=== PATIENT | male | born 1950 | race Caucasian/White ===

== ENCOUNTER 2016-04-07 14:15 | Observation (INO) | payer OTHER ==
--- NOTE | 2016-04-07 15:29 | EDPHY ---
H & P Time Seen by Provider: 04/07/16 15:29 HPI/ROS: CHIEF COMPLAINT: Short of breath with exertion HISTORY OF PRESENT ILLNESS: Over the last 10 days this 65-year-old man is notice it becomes increasingly short of breath with exertion. Normally he is able to go for a run and ride his bike for an hour or two, and has been exercising vigorously for many decades. Over the last 10 days he noticed he gets more short of breath with his runs starting 20 seconds into his exercise. He is able to push on through and complete his exercise but notes he is about 2 or 3 minutes per mile slower than typical. He states he has no energy. Not associated with cough or fever or chest pain. Not associated with leg swelling. He is just feeling much more tired than usual as well. REVIEW OF SYSTEMS: Eye: no change in vision ENT: no sore throat Cardiac: no chest pain or syncope Pulmonary: HPI Abdomen: no vomiting, diarrhea, abdominal pain, does have dark stools for the last week and a half. Musculoskeletal: no back pain Skin: no rash Neuro: no headache Constitutional: no fever : no urinary symptoms A comprehensive 10 point review of systems is otherwise negative aside from elements mentioned in the history of present illness. PAST MEDICAL HISTORY: Negative except for ear surgery Social history: Mother had an CT in her 70s, nonsmoker, a few ibuprofen. Ashley Bobby and Ramin Chi patient. General Appearance: Alert and conversant, cooperative. Eyes: No scleral icterus. ENT, Mouth: Normal mucous membranes. Respiratory: Normal respiratory effort, breath sounds equal, lungs are clear to auscultation. Cardiovascular: Regular rate and rhythm. 1/6 systolic murmur. Gastrointestinal: Abdomen is soft and non tender. Rectal exam shows dark stool sent for Hemoccult. Neurological: Alert and oriented x3. Normally conversant. Face symmetric, normal movement and sensation in all extremities. Skin: Warm and dry, no rashes. Musculoskeletal: No peripheral edema and no joint swelling. Psychiatric: Not agitated. Emergency Department course/MDM: Plan for D-dimer troponin EKG chest x-ray and fecal occult blood. Results discussed with the patient. Plan for admission for cardiac risk stratification and further evaluation in a patient with new onset exertional dyspnea. At this point I think acute gastrointestinal bleed or pulmonary embolism or CHF are unlikely. Smoking Status: Never smoked Constitutional: Initial Vital Signs Temperature (C) 36.7 C 04/07/16 14:22 Heart Rate 66 04/07/16 14:22 Respiratory Rate 17 04/07/16 14:22 Blood Pressure 112/73 04/07/16 14:22 O2 Sat (%) 99 04/07/16 14:22 O2 Delivery Mode Room Air Allergies/Adverse Reactions: No Known Allergies Allergy (Unverified 04/07/16 14:21) Home Medications: Medication Instructions Recorded NK [No Known Home Meds] 04/07/16 Medical Decision Making - Diagnostics EKG Interpretation: 12-lead EKG interpreted by me; official reading is in trace master. My interpretation is sinus rhythm with late anterior RS progression. Imaging: Chest x-ray viewed independently by myself is negative for acute process. Differential Diagnosis: Differential diagnosis considered for shortness of breath including but not limited to pulmonary infectious process, COPD, asthma, pulmonary embolus and congestive heart failure. Consult/Admit Bed Type: Dr. Fran Juan [id number] - Data Points Laboratory Results: Laboratory Results 04/07/16 15:46 04/07/16 15:46 04/07/16 04/07/16 15:46 15:44 WBC 6.37 10^3/uL (3.80-9.50) RBC 4.69 10^6/uL (4.40-6.38) Hgb 14.6 g/dL (13.7-17.5) Hct 42.6 % (40.0-51.0) MCV 90.8 fL (81.5-99.8) MCH 31.1 pg (27.9-34.1) MCHC 34.3 g/dL (32.4-36.7) RDW 12.1 % (11.5-15.2) Plt Count 229 10^3/uL (150-400) MPV 10.7 fL (8.7-11.7) Neut % (Auto) 61.2 % (39.3-74.2) Lymph % (Auto) 26.8 % (15.0-45.0) [place] % (Auto) 8.0 % (4.5-13.0) Eos % (Auto) 3.1 % (0.6-7.6) Baso % (Auto) 0.6 % (0.3-1.7) Nucleat RBC Rel Count 0.0 % (0.0-0.2) Absolute Neuts (auto) 3.89 10^3/uL (1.70-6.50) Absolute Lymphs (auto) 1.71 10^3/uL (1.00-3.00) Absolute Monos (auto) 0.51 10^3/uL (0.30-0.80) Absolute Eos (auto) 0.20 10^3/uL (0.03-0.40) Absolute Basos (auto) 0.04 10^3/uL (0.02-0.10) Absolute Nucleated RBC 0.00 10^3/uL (0-0.01) Immature Gran % 0.3 % (0.0-1.1) Immature Gran # 0.02 10^3/uL (0.00-0.10) D-Dimer < 0.27 ug/mLFEU (0.00-0.50) Sodium 142 mEq/L (134-144) Potassium 4.1 mEq/L (3.5-5.2) Chloride 105 mEq/L (97-110) Carbon Dioxide 26 mEq/l (22-31) Anion Gap 11 mEq/L (8-16) BUN 27 H mg/dL (7-23) Creatinine 0.8 mg/dL (0.7-1.3) Estimated GFR > 60 Glucose 79 mg/dL (70-100) Calcium 9.2 mg/dL (8.5-10.4) Troponin I 0.023 ng/mL (0-0.034) Stool Occult Bld Scrn NEGATIVE (NEGATIVE) Departure - Departure Disposition: [facility] Inpatient Acute Clinical Impression: Dyspnea on exertion Condition: Good
--- NOTE | 2016-04-07 15:47 | CPEKG ---
Heart Rate: 61 RR Interval: 984 P-R Interval: 184 QRSD Interval: 84 QT Interval: 468 QTC Interval: 472 P Modena: -21 QRS Modena: -8 T Wave Modena: 28 EKG Severity - BORDERLINE ECG - EKG Impression: SINUS RHYTHM EKG Impression: BORDERLINE R WAVE PROGRESSION, ANTERIOR LEADS Electronically Signed By: Ammon Kimball 07-Apr-2016 16:01:58
[2016-04-07 16:08] LABS: % IMMATURE GRANULYOCYTES 0.3 % (0.0-1.1); ABSOLUTE IMMATURE GRANULOCYTES 0.02 10^3/uL (0.00-0.10); ADD DIFF? NO; ADD MORPH? NO; ADD SCAN? NO; ATYPICAL LYMPHOCYTE FLAG 0 (0-99); FRAGMENT RBC FLAG 0 (0-99); HEMATOCRIT 42.6 % (40.0-51.0); HEMOGLOBIN 14.6 g/dL (13.7-17.5); LEFT SHIFT FLG 0 (0-99); LIPEMIA HEMOLYSIS FLAG 90 (0-99); MEAN CELL HEMOGLOBIN 31.1 pg (27.9-34.1); MEAN CELL HEMOGLOBIN CONCENTR. 34.3 g/dL (32.4-36.7); MEAN CELL VOLUME 90.8 fL (81.5-99.8); MEAN PLATELET VOLUME 10.7 fL (8.7-11.7); PLATELET CLUMPS FLAG 10 (0-99); PLATELET COUNT 229 10^3/uL (150-400); RED BLOOD CELL COUNT 4.69 10^6/uL (4.40-6.38); RED CELL DISTRIBUTION WIDTH 12.1 % (11.5-15.2)
[2016-04-07 16:21] LABS: ANION GAP 11 mEq/L (8-16); CALCIUM 9.2 mg/dL (8.5-10.4); CARBON DIOXIDE 26 mEq/l (22-31); CHLORIDE 105 mEq/L (97-110); CREATININE 0.8 mg/dL (0.7-1.3); GLOMERULAR FILTRATION RATE > 60; GLUCOSE 79 mg/dL (70-100); POTASSIUM 4.1 mEq/L (3.5-5.2); SODIUM 142 mEq/L (134-144)
--- NOTE | 2016-04-07 16:28 | DX ---
Chest, PA and Lateral History: Dyspnea COMPARISON: October 09, 2008 Findings: There is chronic or recurrent bronchial wall thickening associated with moderately prominen t lung volumes. There is no focal infiltrate or consolidation. Heart size is normal. There is no darnell opathy or mass lesion. There is no pleural effusion or pneumothorax. There is chronic degenerative sp urring in the mid and lower thoracic spine. EKG leads overlie the chest. Impression: Chronic or recurrent airways disease/COPD. No pneumonia or CHF.
[2016-04-07 16:32] LABS: TROPONIN I 0.023 ng/mL (0-0.034)
[2016-04-07] MEDS ORDERED: ACETAMINOPHEN 325 MG TAB PO PRN (18:05)
[2016-04-07] MEDS ORDERED: ONDANSETRON DISINTEGRATING 4 MG TAB PO PRN (18:05)
[2016-04-07] MEDS ORDERED: NITROGLYCERIN 0.4 MG BTL SL PRN (18:05)
--- NOTE | 2016-04-07 22:00 | PDEACUHP ---
History and Physical - Chief Complaint sob with exertion - History of Present Illness 65 yo M with no significant PMH presenting with about 10 days of worsening shortness of breath with exertion. Patient notes that he is very active at baseline, he has competed in [employer] in the past and runs and exercises regularly, greater than 7-9 hours per week. Recently he has begun to experience shortness of breath and fatigue with his usual exertion, as well as chest tightness. This has not occurred in the past. He has not had fevers or chills or cough. He has no chronic lung issues. He has had no swelling or pain in his legs. He has never been told he has a heart murmur in the past. History Information - Allergies/Home Medication List Allergies/Adverse Reactions: No Known Allergies Allergy (Unverified 04/07/16 14:21) Home Medications: NK [No Known Home Meds] 04/07/16 [Last Taken Unknown] I have personally reviewed and updated: family history, medical history, social history, surgical history - Past Medical History no pertinent PMH - Surgical History Reports: no pertinent surgical hx - Family History Positive for: myocardial infarction (mother with NV at age 65) - Social History Smoking Status: Never smoked Alcohol Use: None Drug Use: None Review of Systems ROS: 10pt was reviewed & negative except for what was stated in HPI & below Physical Exam Temp Pulse Resp BP Pulse Ox 36.4 C 69 16 112/73 96 04/07/16 21:49 04/07/16 21:49 04/07/16 21:49 04/07/16 21:49 04/07/16 21:49 Constitutional: no apparent distress, appears nourished Eyes: PERRL, anicteric sclera Ears, Nose, Mouth, Throat: moist mucous membranes, hearing normal Cardiovascular: regular rate and rhythym, no murmur, rub, or gallop, systolic murmur Respiratory: no respiratory distress, no rales or rhonchi, clear to auscultation Gastrointestinal: normoactive bowel sounds, soft, non-tender abdomen, no palpable masses Skin: warm, normal color, mottled Musculoskeletal: full muscle strength, no muscle tenderness Neurologic: AAOx3, sensation intact bilaterally, weakness Psychiatric: interacting appropriately, not anxious, not encephalopathic Lab Data & Imaging Review 04/07/16 15:46 04/07/16 15:46 WBC 6.37 10^3/uL (3.80-9.50) 04/07/16 15:46 RBC 4.69 10^6/uL (4.40-6.38) 04/07/16 15:46 Hgb 14.6 g/dL (13.7-17.5) 04/07/16 15:46 Hct 42.6 % (40.0-51.0) 04/07/16 15:46 MCV 90.8 fL (81.5-99.8) 04/07/16 15:46 MCH 31.1 pg (27.9-34.1) 04/07/16 15:46 MCHC 34.3 g/dL (32.4-36.7) 04/07/16 15:46 RDW 12.1 % (11.5-15.2) 04/07/16 15:46 Plt Count 229 10^3/uL (150-400) 04/07/16 15:46 MPV 10.7 fL (8.7-11.7) 04/07/16 15:46 Neut % (Auto) 61.2 % (39.3-74.2) 04/07/16 15:46 Lymph % (Auto) 26.8 % (15.0-45.0) 04/07/16 15:46 [place] % (Auto) 8.0 % (4.5-13.0) 04/07/16 15:46 Eos % (Auto) 3.1 % (0.6-7.6) 04/07/16 15:46 Baso % (Auto) 0.6 % (0.3-1.7) 04/07/16 15:46 Nucleat RBC Rel Count 0.0 % (0.0-0.2) 04/07/16 15:46 Absolute Neuts (auto) 3.89 10^3/uL (1.70-6.50) 04/07/16 15:46 Absolute Lymphs (auto) 1.71 10^3/uL (1.00-3.00) 04/07/16 15:46 Absolute Monos (auto) 0.51 10^3/uL (0.30-0.80) 04/07/16 15:46 Absolute Eos (auto) 0.20 10^3/uL (0.03-0.40) 04/07/16 15:46 Absolute Basos (auto) 0.04 10^3/uL (0.02-0.10) 04/07/16 15:46 Absolute Nucleated RBC 0.00 10^3/uL (0-0.01) 04/07/16 15:46 Immature Gran % 0.3 % (0.0-1.1) 04/07/16 15:46 Immature Gran # 0.02 10^3/uL (0.00-0.10) 04/07/16 15:46 D-Dimer < 0.27 ug/mLFEU (0.00-0.50) 04/07/16 15:46 Sodium 142 mEq/L (134-144) 04/07/16 15:46 Potassium 4.1 mEq/L (3.5-5.2) 04/07/16 15:46 Chloride 105 mEq/L (97-110) 04/07/16 15:46 Carbon Dioxide 26 mEq/l (22-31) 04/07/16 15:46 Anion Gap 11 mEq/L (8-16) 04/07/16 15:46 BUN 27 mg/dL (7-23) H 04/07/16 15:46 Creatinine 0.8 mg/dL (0.7-1.3) 04/07/16 15:46 Estimated GFR > 60 04/07/16 15:46 Glucose 79 mg/dL (70-100) 04/07/16 15:46 Calcium 9.2 mg/dL (8.5-10.4) 04/07/16 15:46 Troponin I 0.023 ng/mL (0-0.034) 04/07/16 15:46 Stool Occult Bld Scrn NEGATIVE (NEGATIVE) 04/07/16 15:44 Visualized and Interpreted Chest x-ray results: Yes Chest X-Ray results: no infiltrate Visualized and Interpreted EKG results: Yes EKG Interpretation: Positive for: normal sinsus rhythm EKG additional interpertation: poor r wave progression Assessment & Plan Assessment: 65 yo M with no PMH presenting with shortness of breath with exertion and chest pressure x 10 days with new heart murmur # sob/cp with exertion: new over the last 10 days, trop negative and non diagnostic ecg. Plan to monitor on telemetry overnight, serial trops, stress test in am # heart murmur: ? , per patient has never been told he has a murmur in the past. Given his sxs with exertion concerning that he has new or worsening valvular heart disease, has not had echo in the past. Echo ordered and pending # elevated BUN: creatinine wnl, will monitor # dispo: Observation status # patient new to my care. Old records reviewed and summarized as above. Care plan reviewed with ER doctor, further hx obtained from patients present at bedside.
[2016-04-08 08:41] VITALS: BP 106/74; PULSE 58; RESP 13; TEMP 97.7; O2SAT 97
[2016-04-08] MEDS ORDERED: ASPIRIN 325 MG TAB PO SCH (09:00)
--- NOTE | 2016-04-08 09:09 | ECHO ---
[id number] + + [address] : : [place] [address] : : [phone] + + Adult Echocardiographic Report + ---+ :Name: RONN THOMPSON KStudy Date: 04/08/2016 08:16 AM : : Hospital Admission Number: [id number] Location: 143: :: 1950 Gender: Male Height: 74 in : :Age: 65 yrs Race: WH Weight: 180 lb : :Reason For Study: New murmur/SOB with exertion : : BSA: 2.1 meters2 : + ---+ MMode/2D Measurements & Calculations IVSd: 0.89 cm LVIDd: 6.2 cm FS: 38.2 % MV Diam: 4.1 cm LVPWd: 0.76 cm LVIDs: 3.8 cm EDV(Teich): 196.1 ml ESV(Teich): 63.9 ml EF(Teich): 67.4 % Ao root diam: LVOT diam: LVLd ap4: 9.5 cm SV(MOD-sp4): 4.3 cm 2.9 cm EDV(MOD-sp4): 123.0 ml LA dimension: LVOT area: 176.0 ml 5.2 cm 6.4 cm2 LVLs ap4: 8.2 cm ESV(MOD-sp4): 53.0 ml EF(MOD-sp4): 69.9 % Normal Measurement Values: + + :LVIDd (3.5-5.7cm) IVSd (0.6-1.1cm) LVPWd (0.6-1.1cm) Aortic Root (2.0-3.7cm)Left Atrium (1.5-4.0cm): :LV Vol(d) (76-115ml) LV Vol(s) (29-48ml) Ejec Fraction (50-65%)PV Quirino (0.6- 1.2m/s) TV Quirino (0.4-1.0m/s) : :MV E Quirino (0.8-1.0m/s)MV A Quirino (0.3-1.0m/s)LVOT Quirino (0.7-1.2m/s) Asc Ao Quirino ( 0.9-1.8m/s) : + + Doppler Measurements & Calculations MV E max quirino: MV V2 max: Ao V2 max: LV V1 max: 129.0 cm/sec 134.0 cm/sec 101.0 cm/sec 76.7 cm/sec MV A max quirino: MV max P.2 mmHg Ao max PG: LV V1 max P.2 cm/sec MV V2 mean: 4.1 mmHg 2.4 mmHg MV E/A: 2.3 72.4 cm/sec Ao mean PG: LV V1 mean PG: MV mean P.0 mmHg2.0 mmHg 1.0 mmHg MV V2 VTI: 42.5 cm Ao V2 mean: LV V1 mean: MV area (1 diam): 60.6 cm/sec 46.5 cm/sec 13.2 cm2 Ao V2 VTI: 14.4 cm LV V1 VTI: VERONICA(I,D): 5.8 cm2 13.1 cm MVA(VTI): 2.0 cm2 MV Flow area(1diam):VERONICA(V,D): 4.8 cm2 13.2 cm2 MR max quirino: MR(RF 1 diam): SV(MV 1 diam): TR max quirino: 537.0 cm/sec 24.7 % 561.1 ml 257.0 cm/sec MR max PG: SI(MV 1 diam): TR max P.3 mmHg 270.0 ml/m2 26.4 mmHg SV(LVOT): 83.6 ml RAP systole: 5.0 mmHg RVSP(TR): 31.4 mmHg RF(MV,Ao)(1 diam): 0.63 RF(MV,LVOT) (1diam): 0.85 Left Ventricle The left ventricle is mildly dilated. There is normal left ventricular wall thickness. Left ventricular systolic function is normal. Ejection Fraction = 65-70%. No regional wall motion abnormalities noted. Right Ventricle The right ventricle is normal in size and function. Atria The left atrium is severely dilated. Right atrial size is normal. Mitral Valve Prolapse of the posterior mitral leaflet(s). Possible flail posterior leaflet. There is severe mitral regurgitation. The mitral regurgitant jet is anteriorly directed, which is consistent with posterior leaflet pathology. Tricuspid Valve Normal tricuspid valve. There is mild tricuspid regurgitation. Right ventricular systolic pressure is normal. Aortic Valve The aortic valve is trileaflet. The aortic valve opens well. There is no aortic stenosis. Trace to mild aortic regurgitation. Pulmonic Valve The pulmonic valve is normal in structure and function. Trace pulmonic valvular regurgitation. Great Vessels The aortic root is normal size. Pericardium/Pleural There is no pericardial effusion. Conclusion A complete two-dimensional transthoracic echocardiogram was performed (2D, M-mode, Doppler and color flow Doppler). Left ventricular systolic function is normal. The left ventricle is mildly dilated. Ejection Fraction = 65-70%. The left atrium is severely dilated. Prolapse of the posterior mitral leaflet(s). Possible flail posterior leaflet There is severe mitral regurgitation. The mitral regurgitant jet is anteriorly directed, which is consistent with posterior leaflet pathology. There is mild tricuspid regurgitation. Right ventricular systolic pressure is normal. Trace to mild aortic regurgitation. Trace pulmonic valvular regurgitation. Recommend cardiology consult and DEYANIRA. No prior echo Final Reading Physician: Dr Elsa Andrade electronically signed on 04/08/2016 09:07 AM Ordering Physician: Fran Juan Performed By: Ana Payan, [facility]
--- NOTE | 2016-04-08 12:53 | CPR ---
[f rep st] NONINVASIVE CARDIAC PROCEDURE REPORT PROCEDURE: Exercise treadmill myocardial perfusion imaging study. INDICATION FOR STRESS TEST: Ongoing shortness of breath. PRE: After obtaining informed consent, patient was placed onto electrocardiogram, initial EKG shows sinus rhythm, normal axis, no significant ST or T-wave abnormalities. Patient denies of any chest pain or shortness of breath, or symptoms suggesting of ischemia. Initial blood pressure of 104/64, initial saturation 96% on room air. STRESS: Patient was placed on exercise treadmill following standard Carl protocol with the following findings: 1. Patient exercised for 9 minutes and 45 seconds. 2. 10.7 METS. 3. Obtained a heart rate of 141 BPM, which was 90% of MPHR. 4. At peak exercise, patient noted to have submillimeter upsloping ST depression in lateral leads. 5. Patient had no chest pain or symptoms suggesting of ischemia. 6. Patient was noted to have frequent PACs with exercise. At 1 point, noted to have bigeminal PACs. Patient was asymptomatic of them. Patient was noted also to have rare premature ventricular contraction in stress and recovery. 7. Patient's SpO2 remained greater than 90% throughout testing. 8. BP variation during testing at rest 104/64, at peak stress 174/74. 9. Test stopped due to maximum effort. 10. Palmer treadmill score of 9, placing patient at low cardiovascular risk. RECOVERY: Patient recovered 5 minutes, noted to continue to have occasional premature atrial contraction, rare premature ventricular contraction, he remained asymptomatic of chest pain or shortness of breath, within 5 minutes heart rate returned back to baseline, blood pressure also returned back to baseline within 5 minutes. He again remained asymptomatic. Vital signs stable , he was taken down to Nuclear Medicine for poststress MPI imaging. IMPRESSION: A 65-year-old male, reporting increased shortness of breath with exercise over the last 2 weeks, exercise treadmill testing done which was negative for cardiac ischemia, Palmer treadmill score of 9 placing him at low cardiovascular risk, normal BP variations, noted to have frequent PACs with exercise, at 1 point bigeminal PACs, patient was asymptomatic, rare PVC noted in stress and recovery. The results were gone over with Dr. Hector,and called to Dr. Jo of the hospitalist service. /[id number]/MODL MTDD
--- NOTE | 2016-04-08 15:03 | PDDCSUM ---
Discharge Summary Discharge Summary: DISCHARGE SUMMARY NOTE DISCHARGE DIAGNOSES: # exertional angina pectoralis and exertional dyspnea # severe mitral regurgitation, with flail leaflet CONSULTANTS: Dr Elsa Andrade PROCEDURES: Echocardiogram Exercise stress test with Myocardial Perfusion Imaging HOSPITAL COURSE SUMMARY: This patient who is very fit and exercises at a high level regularly comes into the hospital with exertional chest pain and exertional dyspnea, unable to perform at his usual level in his extensive exercise regimens. He has no previous heart or lung disease. He ruled out for myocardial and did not have signs of heart failure or arrhythmia on his evaluation here. He is not a smoker. There was no murmur on initial examination. However echocardiogram showed severe mitral regurgitation with a flail leaflet and eccentric jet. He did well on a treadmill exercise stress test. The patient was seen by Dr. Elsa Andrade. At this point is recommended that he will likely need valve replacement surgery and he has been seen by Dr. Dimitri Braun. He is stable for discharge from hospital at this point but will return in 2 days for outpatient transesophageal echocardiogram and angiography. Depending on the details final results it is anticipated that he will be scheduled for surgery sometime over the next couple of weeks. as his blood pressures are fairly low at this time he is not started on any afterload reduction or beta-blockers. MEDICATION CHANGES: None FOLLOW-UP PLAN: He will be in touch with Dr. Browning office and the plan is for him to have outpatient DEYANIRA and angiography in 2 days. He is instructed to return promptly if he develops significant shortness of breath or angina or other problems. Greater than 35 minutes bedside and care coordination time todayns of heart failure or a root
--- NOTE | 2016-04-08 15:08 | NM ---
Nuclear Medicine Myocardial Perfusion Stress and Rest Imaging History: Chest pain. Comparison: Chest x-ray yesterday Technique: Rest imaging performed with intravenous administration of 10.9 mCi of technetium 99m labe led sestamibi on today. Stress imaging performed with the intravenous administration of 29.9 mCi of technetium 99m labeled sestamibi on today. Patient achieved 10.7 METS. Images are reviewed on the in dependent nuclear medicine work station, computer analysis is performed. Findings: The left ventricular ejection fraction is 51%. Enlarged left ventricular cavity. Stress and rest imaging demonstrates fixed defect involving the inferior lateral wall of the left ventricul ar myocardium consistent with old infarct. No reversible myocardial ischemia.. No focal wall motion a bnormalities. Impression: 1. Borderline normal left ventricular ejection fraction of 51%. 2. No focal wall motion abnormalities. 3. Enlarged left ventricular cavity. 4. 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 5. No evidence of reversible myocardial ischemia.
--- NOTE | 2016-04-08 15:09 | GCON ---
[f rep st] CONSULTATION CARDIOLOGY CONSULT DATE OF CONSULTATION: 04/08/2016 CHIEF COMPLAINT: Mitral valve regurgitation. HISTORY OF PRESENT ILLNESS: We were asked by Dr. Jo to visit with the patient. The patient is a 65-year-old male with no past medical history. He has never been told he had a murmur. He has no h istory of childhood illness. He is very active and has completed 10 [employer] triathlons. 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 Over the past 10-14 days, he has had significant decline in his exercise tolerance. He states that debbie guan starts to run at a leisurely pace and has to slow down or stop after just 20 seconds or so because of dyspnea. Once he stops, he does not feel dyspneic. He has not had anginal quality chest pain. Debbie guan denies palpitations, presyncope, or syncope. He only notes lower extremity edema on long airplane flights. He was admitted through the ER for these symptoms. Serial troponins have been negative. His echocar diogram was performed this morning and reviewed by me and shows severe mitral regurgitation in the se tting of severe posterior leaflet prolapse and possible posterior leaflet flail. His left atrium is severely dilated. LV is mildly dilated with normal systolic function. Estimated RV systolic pressur e is normal. REVIEW OF SYSTEMS: A full 10-point review of systems was performed. The patient did have 2 days of diarrhea in February but has really had no other infectious issues. A full 10-point review of system s is otherwise negative except that which is detailed above. ALLERGIES: No known drug allergies. PAST SURGICAL HISTORY: Ear surgery. MEDICATIONS: None. SOCIAL HISTORY: The patient is and his is at the bedside. He works in [employer] for [employer]. He does not smoke cigarettes or drink significant amounts of alcohol. FAMILY HISTORY: His mother had vascular disease in her 60s. No history of valvular disease in the f amily to his knowledge. His father of what sounds like a ruptured AAA. PHYSICAL EXAM: VITAL SIGNS: Blood pressure 106/74, heart rate 58, oxygen saturation 97% on room air . He is afebrile. GENERAL: Well-appearing male younger than his stated age. HEENT: Sclerae clear and free of jaundice. Mucous membranes are moist. Normocephalic, atraumatic. CARDIOVASCULAR: JVP is less than 10. Carotids equal and 2+ without bruit. Regular rate and rhythm with a harsh holosys tolic murmur heard loudest at the apex, but heard also at the left lower sternal border. No S3. No S4. LUNGS: Clear to auscultation without wheezes, rhonchi, or rales. ABDOMEN: Soft, nontender, an d nondistended without bruits, masses, or hepatosplenomegaly. EXTREMITIES: Warm and well perfused w ithout cyanosis, clubbing, or edema. NEURO: Alert and oriented x3 without gross focal neurological deficits. LABORATORY DATA: CBC is normal. D-dimer is negative. Sodium 142, potassium 4.1, chloride 105, bica rb 26, BUN 27, creatinine 0.8. Troponin negative x3. Stool occult blood is negative. EKG reviewed by me: Sinus rhythm. Left atrial abnormality. Delayed R-wave progression. Echocardiogram reviewed by me, as detailed above. He did have a stress test without ischemic changes. I believe his nuclear images are pending. Chest x-ray, reviewed by me: No pneumonia or heart failure. Chronic or recurrent airway disease. ASSESSMENT AND PLAN: A 65-year-old male with new onset exertional dyspnea. I think this is almost c ertainly related to his severe mitral regurgitation/posterior leaflet that appears to be related to p osterior leaflet prolapse. Negative troponins and nonischemic EKG make coronary disease a less likel y explanation for his symptoms. He is not in heart failure. He is hemodynamically stable. 1. Mitral valve disease: At this point, given his left atrial enlargement, LV enlargement and sympt oms, he is a candidate for consideration for surgical intervention. He will have a visit with Dr. Fco villagomez. Either today or in the near future as an outpatient, he will require DEYANIRA and coronary angiogram for preoperative planning. I discussed this in detail with the patient and his . 2. Shortness of breath: Again, I think this is related to his progressive mitral valve disease, but he will have an angiogram as well as detailed above. No evidence of pneumonia or heart failure. Thank you for allowing us to participate in this patient's care. We will follow with you. /[id number]/MODL
--- NOTE | 2016-04-09 01:11 | GCON ---
[f rep st] CONSULTATION DATE OF CONSULTATION: 04/08/2016 Patient seen at the request of Dr. Andrade with the patient's permission. IMPRESSION: Severe mitral insufficiency with P2 rupture, myxomatous valve degeneration, marked left atrial enlargement, and some increase in systolic dimensions of the left ventricle. RECOMMENDATIONS: This gentleman should undergo mitral valve repair. Prior to that, he will undergo diagnostic left heart catheterization to rule out coronary disease. If in fact there are no coronary lesions, he could undergo right minithoracotomy, left femoral artery cannulation, mitral valve repai r with a 95% repairability rate in our institution. We discussed various repair techniques. We also discussed tissue and mechanical valves if, in fact, repair was unsuccessful. MEDICAL HISTORY: Essentially totally unremarkable. MEDICATIONS: He is on no medications prior to admission. SOCIAL HISTORY: He has never smoked. He does not drink. He uses no drugs. 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 HISTORY: He had abrupt onset of shortness of breath 10 days ago with any exercise. Prior to that, norm guan was running 2-1/2 hours and riding 4 hours a day without difficulty. He was found to have, on echo , severe mitral regurg with a markedly enlarged left atrium and some increase in systolic dimensions of his left ventricle. PHYSICAL EXAMINATION: GENERAL: This is a well-developed, fit middle-aged gentleman sitting on the b edside in no apparent distress. VITAL SIGNS: Blood pressure is 106/74, pulse 58, respirations 13 an d unlabored. O2 saturation was 97% on room air. HEENT: Normocephalic. PERRLA. EOMI. NECK: With out bruit, adenopathy, or thyromegaly. HEART: Rate is regular. LUNGS: He has an auscultated murmu r of mitral regurgitation. Lungs are clear. ABDOMEN: Soft, nontender. Bowel sounds are active. R ECTAL/GENITAL: Deferred. NEUROLOGIC: Grossly intact. Very appropriate. LABORATORY VALUES: Creatinine was 0.8. Hematocrit 42.6. DATA: Please see echo for details. He is scheduled for DEYANIRA and left heart catheterization in antici pation of surgery. His ejection fraction was 65%. Left ventricle was mildly dilated, per their revi ew. Severe mitral regurgitation with mild aortic regurgitation. /[id number]/MODL
== END 2016-04-08 15:26 | disposition home or self-care (01) ==
LOC: F1N 18:20
PROVIDERS: ADMIT Internal Medicine; ATTEND Internal Medicine
DX: I20.0 Unstable angina (principal); I34.0 Nonrheumatic mitral (valve) insufficiency
CPT/HCPCS: 71020; 78452; 93005; 93017; 93306; A9500; G0378

== ENCOUNTER 2016-04-10 07:58 | Day surgery (SDC) | payer OTHER ==
[2016-04-10] MEDS ORDERED: DIAZEPAM 5 MG TAB PO ONE (08:01)
[2016-04-10] MEDS ORDERED: ASPIRIN EC 325 MG TAB PO ONE (08:01)
[2016-04-10] MEDS ORDERED: FAMOTIDINE 20 MG TAB PO ONE (08:01)
[2016-04-10] MEDS ORDERED: MIDAZOLAM 2 MG/2 ML VIAL IVP ONE (08:01)
[2016-04-10] MEDS ORDERED: BENZOCAINE UNIT DOSE SPRAY HURRICAINE MM ONE (08:01)
[2016-04-10] MEDS ORDERED: NS 1,000 ML IV ONE (08:01)
[2016-04-10] MEDS ORDERED: diphenhydrAMINE 25 MG CAP PO ONE (08:01)
[2016-04-10] MEDS ORDERED: fentaNYL 100 MCG/2 ML INJ IVP ONE (08:01)
--- NOTE | 2016-04-10 08:19 | CPEKG ---
Heart Rate: 58 RR Interval: 1034 P-R Interval: 244 QRSD Interval: 90 QT Interval: 452 QTC Interval: 445 P [place]: 44 QRS [place]: -18 T Wave [place]: 30 EKG Severity - ABNORMAL ECG - EKG Impression: SINUS RHYTHM EKG Impression: FIRST DEGREE AV BLOCK EKG Impression: BORDERLINE LEFT AXIS DEVIATION EKG Impression: CONSIDER ANTEROSEPTAL INFARCT Electronically Signed By: Zeke Whitaker 10-Apr-2016 19:25:49
[2016-04-10 08:34] LABS: % IMMATURE GRANULYOCYTES 0.2 % (0.0-1.1); ABSOLUTE IMMATURE GRANULOCYTES 0.01 10^3/uL (0.00-0.10); ADD DIFF? NO; ADD MORPH? NO; ADD SCAN? NO; ATYPICAL LYMPHOCYTE FLAG 10 (0-99); FRAGMENT RBC FLAG 0 (0-99); HEMATOCRIT 44.2 % (40.0-51.0); HEMOGLOBIN 15.1 g/dL (13.7-17.5); LEFT SHIFT FLG 0 (0-99); LIPEMIA HEMOLYSIS FLAG 90 (0-99); MEAN CELL HEMOGLOBIN 31.5 pg (27.9-34.1); MEAN CELL HEMOGLOBIN CONCENTR. 34.2 g/dL (32.4-36.7); MEAN CELL VOLUME 92.1 fL (81.5-99.8); MEAN PLATELET VOLUME 10.7 fL (8.7-11.7); PLATELET CLUMPS FLAG 0 (0-99); PLATELET COUNT 225 10^3/uL (150-400); RED CELL DISTRIBUTION WIDTH 11.9 % (11.5-15.2)
[2016-04-10 08:44] LABS: INR 1.05 (0.83-1.16); PROTIME(PATIENT) 13.6 SEC (12.0-15.0)
[2016-04-10 09:09] LABS: ANION GAP 12 mEq/L (8-16); CALCIUM 9.2 mg/dL (8.5-10.4); CARBON DIOXIDE 26 mEq/l (22-31); CHLORIDE 105 mEq/L (97-110); CHOLESTEROL 220 mg/dL (140-220); CHOLESTEROL/HDL RATIO 3.49 RATIO (1.00-4.97); CREATININE 0.8 mg/dL (0.7-1.3); GLOMERULAR FILTRATION RATE > 60; GLUCOSE 86 mg/dL (70-100); HIGH DENSITY LIPOPROTEIN 63 mg/dL (40-65); LDL/HDL RATIO 2.11 RATIO (1.00-3.64); LOW DENSITY LIPOPROTEIN 133 mg/dL (80-100); MAGNESIUM 1.9 mg/dL (1.6-2.3); NON-HIGH DENSITY LIPOPROTEIN 157 mg/dL (90-129); POTASSIUM 4.1 mEq/L (3.5-5.2); SODIUM 143 mEq/L (134-144); TRIGLYCERIDE 120 mg/dL (40-150); VERY LOW DENSITY LIPOPROTEINS 24 mg/dL (8-25)
[2016-04-10] MEDS ORDERED: LIDOCAINE 1% 30 ML SDV ONE (10:08)
[2016-04-10] MEDS ORDERED: HEPARIN 10,000 UNIT/10 ML MDV ONE (10:08)
[2016-04-10] MEDS ORDERED: MIDAZOLAM 2 MG/2 ML VIAL ONE (10:08)
[2016-04-10] MEDS ORDERED: VERAPAMIL 5 MG/2 ML VIAL ONE (10:08)
[2016-04-10] MEDS ORDERED: fentaNYL 100 MCG/2 ML INJ ONE (10:08)
[2016-04-10] MEDS ORDERED: IOPAMIDOL (ISOVUE-370) 150 ML BTL IV ONE (10:09)
--- NOTE | 2016-04-10 12:47 | CPIP ---
[f rep st] INVASIVE CARDIAC PROCEDURE DATE OF PROCEDURE: 04/10/2016 PROCEDURES: 1. Left heart catheterization. 2. Coronary angiography. INDICATIONS: Severe mitral regurgitation, preoperative planning. COMPLICATIONS: None. DESCRIPTION OF PROCEDURE: N.p.o. status was confirmed. Informed consent obtained. Time-out perform ed. The patient was brought to the catheterization laboratory and prepped and draped in sterile fash ion. Adequate conscious sedation was achieved with Versed and fentanyl IV. Using 1% lidocaine, a 5- Mozambican introducer sheath was placed in the right radial artery. JR4 and JL 3.5 catheters were used t o image the coronary system. Pigtail catheter was used for LV pressures. At the end of the case, th e patient's right radial arteriotomy site was sealed with a TR band. FINDINGS: 1. Left main is normal and bifurcates into the LAD and left circumflex system. It is difficult to o pacify the LAD given the large size of his coronary vessels. The LAD has 1 principal diagonal. Ther e is no flow-limiting disease. 2. Left circumflex is large and dominant. There are 3 large obtuse marginals. There is no signific ant coronary disease. 3. The right coronary artery is nondominant. There is no significant coronary artery disease. 4. Filling pressures. Aortic pressure was 91/60. LV pressure was 90/8 with an end-diastolic pressu re of 17. There is no aortic stenosis. Ventriculogram was not performed due to significant ventricu lar ectopy with the catheter in the left ventricle. CONCLUSIONS: 1. No significant coronary artery disease in this left dominant system. 2. Slightly elevated LV end-diastolic pressure. 3. Known severe mitral regurgitation based on DEYANIRA done earlier today. 4. Ongoing surgical evaluation for mitral valve repair/replacement. 5. The patient taken to [facility] in stable condition. /[id number]/MODL
--- NOTE | 2016-04-10 13:04 | ECHO ---
[id number] + + [address] : : [facility] [address] : : [phone] + Transesophageal Echocardiographic Report + ---+ :Name: RONN THOMPSON KStudy Date: 04/10/2016 09:13 AM : : Hospital Admission Number: [id number] Location: [facility]: :: 1950 Gender: Male : :Age: 65 yrs Race: WH : :Reason For Study: Eval MV : + ---+ LV The left ventricle is normal in size. Ejection Fraction = 65%. Atria The left atrium is severely dilated. No thrombus is detected in the left atrial appendage. Chiari network (normal variant) is noted. The interatrial septum is intact with no evidence for an atrial septal defect. Injection of contrast documented no interatrial shunt. Mitral Valve Flail or severe prolapse of the mitral posterior leaflet. The primary scallop affected is P2. There is severe mitral regurgitation. The mitral regurgitant jet is anteriorly directed, which is consistent with posterior leaflet pathology. Aortic Valve The aortic valve is normal in structure and function. Trace aortic regurgitation. Pulmonic Valve The pulmonic valve is normal in structure and function. Trace pulmonic valvular regurgitation. Tricuspid Valve The tricuspid valve is normal in structure and function. Pericardium There is no pericardial effusion. Conclusion A 2D transesophageal echocardiogram with color flow Doppler was performed. The left ventricle is normal in size. Ejection Fraction = 65%. The left atrium is severely dilated. No thrombus is detected in the left atrial appendage. The interatrial septum is intact with no evidence for an atrial septal defect. Injection of contrast documented no interatrial shunt. Flail or severe prolapse of the mitral posterior leaflet. There is severe mitral regurgitation. The primary scallop affected is P2 The mitral regurgitant jet is anteriorly directed, which is consistent with posterior leaflet pathology. The aortic valve is normal in structure and function. Trace aortic regurgitation. Trace pulmonic valvular regurgitation. Final Reading Physician: Dr Elsa Andrade electronically signed on 04/10/2016 01:02 PM Ordering Physician: Elsa Andrade Performed By: Dr Elsa Andrade
== END 2016-04-10 17:41 | disposition home or self-care (01) ==
LOC: FCATH 07:58
PROVIDERS: ATTEND Internal Medicine Cardiovascular Disease
PROC: B2111ZZ Fluoroscopy of Multiple Coronary Arteries using Low Osmolar Contrast (ICD-10-PCS; principal; 2016-04-10)
PROC: 4A023N7 Measurement of Cardiac Sampling and Pressure, Left Heart, Percutaneous Approach (ICD-10-PCS; principal; 2016-04-10)
DX: I34.0 Nonrheumatic mitral (valve) insufficiency (principal)
CPT/HCPCS: J1644; J2250; J3010; Q9967

== ENCOUNTER 2016-04-16 05:47 | Inpatient (IN) | payer OTHER ==
[2016-04-16] MEDS ORDERED: MUPIROCIN 2% 22 GM OINT NS ONE (06:00)
[2016-04-16] MEDS ORDERED: PHENYLEPHRINE HCL 50 MG in NS 250 ML IV ONE (06:00)
[2016-04-16] MEDS ORDERED: ceFAZolin 2 GM/DEXTROSE 100 ML IV ONE (06:00)
[2016-04-16] MEDS ORDERED: LIDOCAINE 1% 5 ML SDV ID PRN ×2 (06:00→09:29)
[2016-04-16] MEDS ORDERED: AMINOCAPROIC ACID 5 GM/20 ML VIAL IV ONE (06:00)
[2016-04-16] MEDS ORDERED: niCARdipine/NACL 200 ML IV SCH (06:00)
[2016-04-16] MEDS ORDERED: INSULIN REGULAR HUMAN 100 UNIT in NS 100 ML IV ONE (06:00)
[2016-04-16] MEDS ORDERED: NS 1,000 ML IV ONE (06:00)
[2016-04-16] MEDS ORDERED: NOREPINEPHRINE BITARTRATE 16 MG in NS 250 ML IV ONE (06:00)
[2016-04-16] MEDS ORDERED: SODIUM BICARBONATE 20 MEQ, LIDOCAINE 1% 10 ML in NORMOSOL-R 1,000 ML MISC ONE (06:00)
[2016-04-16] MEDS ORDERED: CHLORHEXIDINE GLUC HIBICLENS 118 ML BTL TP SCH (06:00)
[2016-04-16] MEDS ORDERED: MANNITOL 25% 12.5 GM/50 ML VIAL IV ONE (06:00)
[2016-04-16] MEDS ORDERED: CITRATE DEXTROSE SOLN 500 ML BAG MISC ONE (06:00)
[2016-04-16] MEDS ORDERED: LIDOCAINE 1% 5 ML SDV ONE (06:08)
[2016-04-16] MEDS ORDERED: PROTAMINE SULFATE 50 MG/5 ML VIAL IVP ONE (06:35)
[2016-04-16] MEDS ORDERED: POTASSIUM Cl (KCl) 20 MEQ/50 ML BAG IV ONE (06:36)
[2016-04-16] MEDS ORDERED: AMINOCAPROIC ACID 5 GM/20 ML VIAL ONE ×2 (06:36→06:40)
[2016-04-16] MEDS ORDERED: MILRINONE/DEXTROSE/100 ML BAG IV ONE (06:36)
[2016-04-16] MEDS ORDERED: CALCIUM CHLORIDE 1 GM/10 ML INJ ONE ×2 (06:36→06:40)
[2016-04-16] MEDS ORDERED: DOPamine/DEXTROSE/250 ML BAG IV ONE (06:37)
[2016-04-16] MEDS ORDERED: niCARdipine/NACL/200 ML BAG IV ONE (06:37)
[2016-04-16] MEDS ORDERED: ADENOSINE 6 MG/2 ML VIAL ONE (06:38)
[2016-04-16] MEDS ORDERED: AMIODARONE HCL 150 MG/3 ML VIAL ONE ×2 (06:38→06:41)
[2016-04-16] MEDS ORDERED: HEPARIN 10,000 UNIT/10 ML MDV ONE ×2 (06:38→06:42)
[2016-04-16] MEDS ORDERED: ceFAZolin 1 GM VIAL ONE (06:39)
[2016-04-16] MEDS ORDERED: CITRATE DEXTROSE SOLN 500 ML BAG ONE (06:39)
[2016-04-16] MEDS ORDERED: ALBUMIN 5% 250 ML BOTTLE IV ONE ×2 (06:40→14:57)
[2016-04-16] MEDS ORDERED: methylPREDNISolone SOD SUCC 1 GM/8 ML VIAL ONE (06:41)
[2016-04-16] MEDS ORDERED: LIDOCAINE 2% 100 MG/5 ML SYR IVP ONE ×2 (06:41→07:43)
[2016-04-16] MEDS ORDERED: MAGNESIUM SULFATE 1 GM/2 ML VIAL ONE (06:41)
[2016-04-16] MEDS ORDERED: NA BICARBONATE 50 MEQ/50 ML VIAL ONE (06:42)
[2016-04-16] MEDS ORDERED: BUPIVACAINE/EPI 0.25% 30 ML SDV ONE ×2 (07:36→13:32)
[2016-04-16] MEDS ORDERED: SKIN ADHESIVE (DERMABOND) 1 EACH TP ONE (07:36)
[2016-04-16] MEDS ORDERED: PROPOFOL 200 MG/20 ML VIAL ONE ×2 (07:39→13:53)
[2016-04-16] MEDS ORDERED: fentaNYL 250 MCG/5 ML INJ ONE (07:39)
[2016-04-16] MEDS ORDERED: REMIFENTANIL HCL 1 MG VIAL ONE (07:39)
[2016-04-16] MEDS ORDERED: PROPOFOL/EMULSION 500 MG/50 ML BOTTLE IV ONE (07:39)
[2016-04-16] MEDS ORDERED: MIDAZOLAM 2 MG/2 ML VIAL ONE (07:53)
[2016-04-16] MEDS ORDERED: DEXMEDETOMIDINE HCL 400 MCG in NS 100 ML IV SCH (08:00)
[2016-04-16] MEDS ORDERED: LR 1,000 ML IV ONE (09:29)
[2016-04-16] MEDS ORDERED: morphINE *ANESTHESIA ONLY* 10 MG/ML VIAL ONE (11:00)
[2016-04-16] MEDS ORDERED: MAGNESIUM SULF 2 GM/WATER 50 ML BAG IV ONE (11:07)
[2016-04-16] MEDS ORDERED: ROCURONIUM 50 MG/5 ML VIAL ONE ×2 (11:19→13:12)
[2016-04-16] MEDS ORDERED: fentaNYL 50 MCG PATCH TD ONE (13:30)
[2016-04-16] MEDS ORDERED: INSULIN REGULAR HUMAN 100 UNIT in NS 100 ML IV SCH (13:30)
[2016-04-16] MEDS ORDERED: SODIUM CL NASAL 45 ML BTL EACHNARE PRN (13:30)
[2016-04-16] MEDS ORDERED: MEPERIDINE 25 MG/ML SYR IVP PRN (13:30)
[2016-04-16] MEDS ORDERED: ONDANSETRON 4 MG/2 ML VIAL IVP PRN (13:30)
[2016-04-16] MEDS ORDERED: LACTULOSE 20 GM/30 ML UDCUP PO PRN (13:30)
[2016-04-16] MEDS ORDERED: METOCLOPRAMIDE 10 MG/2 ML VIAL IVP PRN (13:30)
[2016-04-16] MEDS ORDERED: fentaNYL 100 MCG/2 ML INJ IVP PRN (13:30)
[2016-04-16] MEDS ORDERED: NS 1,000 ML IV SCH (13:30)
[2016-04-16] MEDS ORDERED: D50W 25 GM/50 ML SYR IVP PRN (13:30)
[2016-04-16] MEDS ORDERED: PANTOPRAZOLE SODIUM 40 MG in NS 100 ML IV ONE (13:30)
[2016-04-16] MEDS ORDERED: POTASSIUM Cl (KCl) 50 ML IV PRN (13:30)
[2016-04-16] MEDS ORDERED: BISACODYL 10 MG SUPP PR PRN (13:30)
[2016-04-16] MEDS ORDERED: MAGNESIUM SULF 2 GM/WATER 50 ML IV ONE (13:30)
[2016-04-16] MEDS ORDERED: MAGNESIUM HYDROXIDE 30 ML UDCUP PO PRN (13:30)
[2016-04-16] MEDS ORDERED: ACETAMINOPHEN 325 MG TAB PO PRN (13:30)
[2016-04-16] MEDS ORDERED: POLYETHYLENE GLYCOL 3350 17 GM PKT PO PRN (13:30)
[2016-04-16] MEDS ORDERED: ACETAMINOPHEN 650 MG SUPP PR PRN (13:30)
[2016-04-16] MEDS ORDERED: ONDANSETRON DISINTEGRATING 4 MG TAB PO PRN (13:30)
[2016-04-16] MEDS ORDERED: CEPACOL LOZENGE PO PRN (13:30)
[2016-04-16] MEDS: ALBUMIN 5% 250 ML IV PRN ×2 (15:00→15:53)
--- NOTE | 2016-04-16 15:35 | CPEKG ---
Heart Rate: 64 RR Interval: 938 P-R Interval: 244 QRSD Interval: 92 QT Interval: 476 QTC Interval: 491 P [place]: 55 QRS [place]: 85 T Wave [place]: 38 EKG Severity - ABNORMAL ECG - EKG Impression: SINUS RHYTHM EKG Impression: ATRIAL PREMATURE COMPLEX EKG Impression: FIRST DEGREE AV BLOCK EKG Impression: BORDERLINE RIGHT AXIS DEVIATION EKG Impression: LOW VOLTAGE IN FRONTAL LEADS EKG Impression: BORDERLINE R WAVE PROGRESSION, ANTERIOR LEADS EKG Impression: BORDERLINE PROLONGED QT INTERVAL Electronically Signed By: Jessica Lorenz 17-Apr-2016 08:44:11
--- NOTE | 2016-04-16 15:38 | POSTOPPROG ---
Post Op Note Date of Operation: 04/16/16 Surgeon: Dimirti Braun Extract Puller: Birgit Anesthesiologist: Judi Anesthesia: GET(General Endotracheal) Pre-op Diagnosis: MR Procedure: MICS MV repair #32 ring, LCFA & LCFV cannulation w primary repair Inf/Abcess present in the surg proc area at time of surgery?: No EBL: 100-500 Drains: Other (1 te)
[2016-04-16] MEDS: ceFAZolin 2 GM/DEXTROSE 100 ML IV SCH ×2 (15:50→21:12)
[2016-04-16] MEDS: KETOROLAC 15 MG/1 ML SDV IVP SCH ×2 (16:09→18:49)
--- NOTE | 2016-04-16 16:22 | DX ---
AP chest x-ray 1528 hours. History: Follow-up open heart surgery. Findings: Comparison to April 07, 2016. Central vascular catheter is seen from right IJ approach along with right-sided chest tube. Cardiac v alve replacement is now noted. Heart size appears to be enlarged. There may be pericardial effusion. Pulmonary vasculature is not engorged. There is no consolidation, effusion, or pneumothorax. There is decreased inspiration with mild compressive atelectatic change at the lung bases suspected. Osseous structures are unchanged. Impression: 1. Postoperative changes related to cardiac valve replacement. 2. Cardiomegaly noted. Rule out pericardial effusion. 3. Decreased inspiration with compressive atelectatic change suspected at the lung bases. 4. Right-sided chest tube in good position.
--- NOTE | 2016-04-16 16:24 | GOP ---
[f rep st] OPERATIVE REPORT DATE OF OPERATION: 04/16/2016 SURGEON: Dimitri Braun DO MATERIAL CONTROL ASSOCIATE: Bhupinder Vora M.D. and Alma Berry PREOPERATIVE DIAGNOSIS: Severe mitral insufficiency with marked left atrial and left ventricular enlargement. POSTOPERATIVE DIAGNOSIS: Severe mitral insufficiency with marked left atrial and left ventricular enlargement. PROCEDURE PERFORMED: 1. MICS mitral valve repair with quadrangular resection and a #32 ring through a right minimally invasive thoracotomy and right common femoral artery and vein cannulation. 2. Over-sew of left atrial appendage. FINDINGS: Patient presented with severe symptomatic congestive heart failure, likely due to ruptured chordae and a chronic regurgitant valve. He underwent diagnostic left heart catheterization without significant obstructive disease noted. He was referred for surgical repair. DESCRIPTION OF PROCEDURE: He was brought to the operating room, placed in supine position. He was prepped and draped with a double-lumen endotracheal tube, Upperco-Riaz catheter, and radial A line. Simultaneously, the right common femoral artery and vein were exposed on the anterior surface, both good quality vessels. A 4th intercostal space mini thoracotomy incision was placed on the right beneath the breast with the pericardium opened and retracted. Bleeding was controlled with cautery. Retraction sutures were placed. After heparinization, the vein and artery were cannulated with echo guidance without difficulty. We then initiated cardiopulmonary bypass. Antegrade cardioplegic catheter was placed in the ascending aorta, and then an aortic cross clamp was applied through a separate stab wound incision. This was a Dana clamp, and cardioplegic arrest was obtained. We then opened the left atrium through the right superior pulmonary vein in the groove, and brought a post through the anterior chest wall. A retractor blade from [employer] was placed on it. CO2 was infused through it. The retractor blade exposed the valve perfectly. An additional plastic sheath used to help expose the valve was placed. We had excellent exposure. Circumferential sutures were placed with 2- 0 Tycron in the anulus. We then had excellent exposure of the valve. We then inspected it. P1 and P3 were normal as was the entire anterior leaflet; however , there was rupture of multiple chordae to the most of the posterior P2. This was resected in a quadrangular fashion. The valve was reapproximated with interrupted cortex 5-0 sutures. The valve was tested with no regurgitation. We then tested the patient for a 32 ring from Angela which was appropriate. This was a physio ring. It was sutured in place. We noticed that at the top of the ring, the sutures had avulsed through the muscle. We then used a pledgeted Prolene suture with felt reinforcement to reinforce the top portion of the ring to the valve without difficulty. Testing the valve revealed no regurgitation. I then closed the left atrial appendage from the inside with a continuous running 4-0 Prolene. I closed the left atrium with felt reinforced at the apices 3-0 Prolene without difficulty. The atrium and ventricle were filled with saline. The CO2 was discontinued. The cross-clamp was removed with suction on the ascending aortic vent with the patient in Trendelenburg. Spontaneous cardiac activity was noted to resume. The patient resumed normal sinus rhythm. We watched him for some time until no further air was identified with intermittent ventilation and filling of the heart in Trendelenburg. When no further air was identified, he was easily weaned from bypass. The echo revealed no regurgitation with excellent valvular function and no KITTY. He was noted to have increase in systolic dimensions consistent with longstanding mitral regurge. The heparin was reversed with protamine. The venous cannula was removed and oversewn. Removing the arterial cannula resulted in a slight tear of the artery which required proximal and distal occlusion with primary repair of the artery with a 5-0 Prolene. Excellent pulses were Doppler'd at the completion. That wound was closed after the heparin was reversed with protamine. A single Arpit drain and 2 ventricular pacing wires were brought out through separate stab wound incisions. The rib was approximated with interrupted intercostal sutures. The muscle was approximated with 0 Vicryl. The subcutaneous tissue with 3-0 Vicryl, and the skin with Dexon. Dressings were applied. The patient was returned to the ICU in stable condition, extubated, in no apparent distress. /[id number]/MODL MTDD
[2016-04-16] MEDS ORDERED: ALBUMIN 5% 500 ML BOTTLE IV ONE (17:03)
[2016-04-16 17:09] LABS: BASE EXCESS -6.1 mEq/L (-2.5-2.5); BICARBONATE 19 mEq/L (22-26); MEASURED OXYGEN SATURATION 91 % (92-95); PCO2 39 mmHg (34-38); PO2 67 mmHg (65-75); TCO2 20 mEq/L (23-27)
[2016-04-16] MEDS ORDERED: ALBUMIN 5% 500 ML IV ONE ×2 (17:30→19:30)
[2016-04-16] MEDS ORDERED: NOREPINEPHRINE BITARTRATE 16 MG in NS 250 ML IV SCH (18:00)
[2016-04-16] MEDS: MUPIROCIN 2% 22 GM OINT NS SCH (20:54)
[2016-04-17 00:32] LABS: HEMATOCRIT 30.7 % (40.0-51.0); HEMOGLOBIN 10.8 g/dL (13.7-17.5); MEAN CELL HEMOGLOBIN 32.2 pg (27.9-34.1); MEAN CELL HEMOGLOBIN CONCENTR. 35.2 g/dL (32.4-36.7); MEAN CELL VOLUME 91.6 fL (81.5-99.8); RED BLOOD CELL COUNT 3.35 10^6/uL (4.40-6.38); RED CELL DISTRIBUTION WIDTH 12.1 % (11.5-15.2)
[2016-04-17] MEDS: KETOROLAC 15 MG/1 ML SDV IVP SCH ×2 (00:43→06:21)
[2016-04-17 03:25] LABS: BASE EXCESS -2.6 mEq/L (-2.5-2.5); BICARBONATE 22 mEq/L (22-26); MEASURED OXYGEN SATURATION 98 % (92-95); PCO2 38 mmHg (34-38); PO2 95 mmHg (65-75); TCO2 23 mEq/L (23-27)
[2016-04-17] MEDS ORDERED: ALBUMIN 5% 250 ML IV ONE (03:30)
[2016-04-17 05:20] LABS: % IMMATURE GRANULYOCYTES 0.5 % (0.0-1.1); ABSOLUTE IMMATURE GRANULOCYTES 0.08 10^3/uL (0.00-0.10); ADD DIFF? NO; ADD MORPH? NO; ADD SCAN? NO; ATYPICAL LYMPHOCYTE FLAG 10 (0-99); FRAGMENT RBC FLAG 0 (0-99); HEMATOCRIT 29.5 % (40.0-51.0); HEMOGLOBIN 10.2 g/dL (13.7-17.5); LEFT SHIFT FLG 40 (0-99); LIPEMIA HEMOLYSIS FLAG 90 (0-99); MEAN CELL HEMOGLOBIN 32.1 pg (27.9-34.1); MEAN CELL HEMOGLOBIN CONCENTR. 34.6 g/dL (32.4-36.7); MEAN CELL VOLUME 92.8 fL (81.5-99.8); MEAN PLATELET VOLUME 11.2 fL (8.7-11.7); PLATELET CLUMPS FLAG 0 (0-99); PLATELET COUNT 119 10^3/uL (150-400); RED BLOOD CELL COUNT 3.18 10^6/uL (4.40-6.38); RED CELL DISTRIBUTION WIDTH 12.3 % (11.5-15.2)
[2016-04-17 05:57] LABS: ANION GAP 8 mEq/L (8-16); CALCIUM 7.9 mg/dL (8.5-10.4); CARBON DIOXIDE 21 mEq/l (22-31); CHLORIDE 114 mEq/L (97-110); CREATININE 0.7 mg/dL (0.7-1.3); GLOMERULAR FILTRATION RATE > 60; GLUCOSE 102 mg/dL (70-100); POTASSIUM 4.9 mEq/L (3.5-5.2); SODIUM 143 mEq/L (134-144)
[2016-04-17] MEDS: ceFAZolin 2 GM/DEXTROSE 100 ML IV SCH ×3 (06:21→23:00)
[2016-04-17] MEDS: HEPARIN 5,000 UNIT/0.5 ML SYR SC SCH ×3 (06:22→22:28)
--- NOTE | 2016-04-17 07:07 | SOAPPROG ---
SOAP Progress Note Assessment/Plan: POD #1: Minimally invasive MVR with #32 Physio ring Severe MR with LA/LV enlargement and normal LV function s/p MICS MVR with #32 ring - weaned from CPB without need for pacing/blood products/inotropes or pressors. Extubated prior to transfer to ICU. Levophed started to keep MAPs > 65 and titrated up to 6 mcgs. - Wean Levophed for MAPs 65 - CT to bulb suction/FC out/AL to remain while on Levo - Ambulation - Coumadin goal 2-3 x 3 months for thromboprophylaxis - Beta hernandez once off pressors Class II CHF with normal LV function - Diuretics/BB/LUBA when appropriate Acute blood loss anemia - HCT 29.5 this AM without signs of active bleeding - monitor Subjective: Denies N/V/CP/SOB. Good appetite Objective: Vital Signs Temp Pulse Resp BP Pulse Ox 36.9 C 73 15 110/57 L 100 04/17/16 05:00 04/17/16 05:45 04/17/16 05:45 04/17/16 05:45 04/17/16 05:45 Laboratory Results 04/17/16 05:10 04/17/16 05:10 04/16/16 04/17/16 04/18/16 05:59 05:59 05:59 Intake Total 2779 Output Total 1120 Balance 1659 Physical Exam - Physical Exam General Appearance: WD/WN, alert, no apparent distress EENT: No scleral icterus (R), No scleral icterus (L) Neck: normal inspection Respiratory: chest non-tender, lungs clear, normal breath sounds Cardiac/Chest: regular rate, rhythm Peripheral Pulses: 2+: dorsalis-pedis (R), dorsalis-pedis (L) Abdomen: non-tender, soft, No distended Skin: normal color, warm/dry Extremities: normal inspection, No pedal edema, No swelling Neuro/Psych: no motor/sensory deficits, alert, normal mood/affect, oriented x 3 ICD10 Worksheet Patient Problems: Problems Problem Status Diagnosed Acute blood loss anemia Acute Left ventricular diastolic dysfunction, NYHA class 2 Acute S/P mitral valve repair Acute 04/16/16 Severe mitral regurgitation Acute
--- NOTE | 2016-04-17 08:23 | DX ---
Portable chest x-ray 0620 hours. History: Follow-up open heart surgery. Findings: Comparison to April 16, 2016. Heart size remains mild to moderately enlarged. Pulmonary vasculature is not significantly engorged. Right-sided chest tube and central lines remain in place. There does appear to be a kink involving th e central vascular sheath in the right lower neck region. Cardiac valve replacement is once again not ed. Subcutaneous gas is seen right inferolateral chest wall. There is once again relatively poor insp iration with mild bibasilar subsegmental atelectasis suspected. There is no new consolidation or evid ence of pneumothorax. Impression: 1. Persistent mild to moderate cardiomegaly. Rule out pericardial effusion. 2. Central vascular sheath appears to be kinked in the right lower neck region. 3. Poor inspiration with mild bibasilar subsegmental atelectasis suspected.
[2016-04-17] MEDS: ASPIRIN 81 MG CHEWABLE TAB PO SCH (08:48)
[2016-04-17] MEDS: PANTOPRAZOLE SODIUM 40 MG TAB PO SCH (08:48)
[2016-04-17] MEDS: MUPIROCIN 2% 22 GM OINT NS SCH ×2 (08:51→22:28)
[2016-04-17 09:11] LABS: POTASSIUM 4.7 mEq/L (3.5-5.2)
--- NOTE | 2016-04-17 09:59 | PDINTPN ---
Otolaryngology Rep Progress Note Assessment/Plan: Assessment: S/P MV repair: Clinically doing quite well, but still on low-dose NE when lying down. Hyperglycemia: BSs down a bit but still high. Currently off insulin gtt. Anemia: Stable. No signs of active blood loss. Hypotension: Mild, on and off low-dose NE. Plan: Follow Hgb and watch for signs of ongoing blood loss. 04/17/16 10:30 Subjective: Feels OK, no pain. Good appetite. Walked without difficulty. Objective: Vital Signs Temp Pulse Resp BP Pulse Ox 37.1 C 74 19 96/50 L 92 04/17/16 07:00 04/17/16 09:00 04/17/16 09:00 04/17/16 09:00 04/17/16 09:00 Laboratory Results 04/17/16 05:10 04/17/16 08:30 04/16/16 04/17/16 04/18/16 05:59 05:59 05:59 Intake Total 2779 Output Total 1120 27 Balance 1659 -27 CXR: Cardiomegaly. Mild atelectasis. Images reviewed. Physical Exam - Physical Exam General Appearance: alert, no apparent distress EENT: normal ENT inspection Neck: normal inspection Respiratory: lungs clear, normal breath sounds Cardiac/Chest: regular rate, rhythm, No edema Abdomen: normal bowel sounds, non-tender Skin: normal color, warm/dry Extremities: normal inspection Neuro/Psych: alert, normal mood/affect, oriented x 3 ICD10 Worksheet Patient Problems: Problems Problem Status Diagnosed Acute blood loss anemia Acute Left ventricular diastolic dysfunction, NYHA class 2 Acute S/P mitral valve repair Acute 04/16/16 Severe mitral regurgitation Acute
--- NOTE | 2016-04-17 10:41 | GCON ---
[f rep st] CONSULTATION PULMONARY/CRITICAL CARE CONSULTATION. DATE OF CONSULTATION: 04/16/2016 REFERRING PHYSICIAN: Dimitri Braun DO REASON FOR REFERRAL: Evaluation and management of anemia and hyperglycemia. HISTORY: The patient is a 65-year-old gentleman who had been healthy until about 3 weeks ago when he started to notice increasing shortness of breath with exertion. He is usually quite active, running and cycling regularly except for several hours a week. This increased his shortness of breath with exertion. It was also accompanied by some chest tightness. He was admitted to the hospital on with these symptoms, and an echocardiogram demonstrated severe mitral regurgitation with a dila tiara left atrium. A heart catheterization was performed, which demonstrated no significant coronary a rtery disease. He was referred to Dr. Braun, who performed mitral valve repair. Multiple ruptured c hordae were found. The valve was repaired, and an annuloplasty ring was placed. The patient was bro ught to the intensive care unit, extubated. He currently reports some chest pain but this is fairly mild. He denies shortness of breath and is starting to develop appetite. He still feels a bit sleep y. PAST MEDICAL HISTORY: None. MEDICATIONS: None prior to admission. ALLERGIES: None. SOCIAL HISTORY: Nonsmoker. Denies excessive alcohol. FAMILY HISTORY: Unremarkable. REVIEW OF SYSTEMS: A 10-point review of systems adds nothing to the history of present illness. PHYSICAL EXAMINATION: GENERAL: The patient is awake, alert, in no acute distress. VITAL SIGNS: Hi s blood pressure is 89/57 with a pulse of 67. He is afebrile. Oxygen saturations are 99% on 4 L. CV P is 3. HEENT: Normocephalic, atraumatic. No icterus. NECK: No adenopathy. Trachea is midline. CHEST: Clear to auscultation. He has a thoracotomy incision. CARDIAC: Regular rate and rhythm wi thout murmur. ABDOMEN: Soft, nontender. Bowel sounds are hypoactive but present. EXTREMITIES: No clubbing, cyanosis, or edema. LABORATORY: Chemistry group reveals a sodium of 145 and a glucose of 176. A chest x-ray shows some mild atelectasis. IMAGES: Reviewed. ASSESSMENT: 1. Status post mitral valve repair. The patient is doing quite well, with stable hemodynamics and e xtubated shortly after surgery. 2. Hyperglycemia. The patient has no prior history of diabetes or hyperglycemia. His high blood montalvo gars are likely due to postoperative stress. 3. Anemia. The patient's hemoglobin is 12.2, down from 14.6 prior to admission. This is likely due to perioperative blood loss as well as volume expansion from IV fluids. RECOMMENDATIONS: 1. Follow blood sugars closely, using insulin and insulin drip if necessary to control blood sugars. 2. Follow hemoglobin. There is no signs of continued significant blood loss at this time but chest tube output, and hemodynamics will be monitored. /[id number]/MODL
[2016-04-17 12:24] LABS: INR 1.44 (0.83-1.16); PROTIME(PATIENT) 17.5 SEC (12.0-15.0)
[2016-04-17 12:38] LABS: ANION GAP 5 mEq/L (8-16); CARBON DIOXIDE 26 mEq/l (22-31); CHLORIDE 110 mEq/L (97-110); CREATININE 0.7 mg/dL (0.7-1.3); GLOMERULAR FILTRATION RATE > 60; GLUCOSE 119 mg/dL (70-100); POTASSIUM 4.6 mEq/L (3.5-5.2); SODIUM 141 mEq/L (134-144)
[2016-04-17] MEDS ORDERED: traMADol 50 MG TAB PO PRN (13:21)
[2016-04-17] MEDS ORDERED: WARFARIN SODIUM 5 MG TAB PO ONE (16:00)
[2016-04-17] MEDS: IBUPROFEN 600 MG TAB PO PRN (16:54)
[2016-04-17] MEDS ORDERED: METOPROLOL TARTRATE 25 MG TAB PO SCH (21:00)
[2016-04-17] MEDS: SENNOSIDES/DOCUSATE SODIUM TAB PO SCH (22:28)
[2016-04-18] MEDS: HYDROCODONE/APAP 5/325 TAB PO PRN (01:48)
[2016-04-18 02:57] LABS: % IMMATURE GRANULYOCYTES 0.3 % (0.0-1.1); ABSOLUTE IMMATURE GRANULOCYTES 0.04 10^3/uL (0.00-0.10); ADD DIFF? NO; ADD MORPH? NO; ADD SCAN? NO; ATYPICAL LYMPHOCYTE FLAG 0 (0-99); FRAGMENT RBC FLAG 0 (0-99); HEMATOCRIT 28.4 % (40.0-51.0); HEMOGLOBIN 9.7 g/dL (13.7-17.5); LEFT SHIFT FLG 0 (0-99); LIPEMIA HEMOLYSIS FLAG 90 (0-99); MEAN CELL HEMOGLOBIN CONCENTR. 34.2 g/dL (32.4-36.7); MEAN CELL VOLUME 93.7 fL (81.5-99.8); MEAN PLATELET VOLUME 11.1 fL (8.7-11.7); PLATELET CLUMPS FLAG 0 (0-99); PLATELET COUNT 88 10^3/uL (150-400); RED BLOOD CELL COUNT 3.03 10^6/uL (4.40-6.38); RED CELL DISTRIBUTION WIDTH 12.7 % (11.5-15.2)
[2016-04-18 03:03] LABS: INR 1.45 (0.83-1.16); PROTIME(PATIENT) 17.6 SEC (12.0-15.0)
[2016-04-18 03:21] LABS: ANION GAP 4 mEq/L (8-16); CALCIUM 7.9 mg/dL (8.5-10.4); CARBON DIOXIDE 27 mEq/l (22-31); CHLORIDE 107 mEq/L (97-110); CREATININE 0.7 mg/dL (0.7-1.3); GLOMERULAR FILTRATION RATE > 60; GLUCOSE 112 mg/dL (70-100); POTASSIUM 4.6 mEq/L (3.5-5.2); SODIUM 138 mEq/L (134-144)
[2016-04-18] MEDS: HEPARIN 5,000 UNIT/0.5 ML SYR SC SCH (03:34)
[2016-04-18] MEDS: IBUPROFEN 600 MG TAB PO PRN (04:30)
--- NOTE | 2016-04-18 08:08 | DX ---
Chest, One View Portable at 0 352 hours History: Mitral valve replacement. Right chest tube, right central line Comparison: April 17, 2016 Findings: Cardiac silhouette is moderately enlarged. Mitral valve replacement noted. Right internal jugular line superior vena cava. Right-sided chest tube in the right lung apex. Mild pulmonary venous hypertension. Right chest wall subcutaneous emphysema. Patient is rotated to the right. Impression: 1. No pneumothorax. 2. Moderate enlargement of the cardiac silhouette. Consider cardiac echo to exclude pericardial effus ion. 3. Mild pulmonary edema pattern. 4. Recommend chest 2 views in the patient's medical condition permits.
[2016-04-18] MEDS: ASPIRIN 81 MG CHEWABLE TAB PO SCH (09:12)
[2016-04-18] MEDS: SENNOSIDES/DOCUSATE SODIUM TAB PO SCH (09:12)
[2016-04-18] MEDS: PANTOPRAZOLE SODIUM 40 MG TAB PO SCH (09:12)
[2016-04-18] MEDS: GLUCOSAMINE/CHONDROITIN CAP PO SCH (09:12)
--- NOTE | 2016-04-18 09:13 | SOAPPROG ---
SOAP Progress Note Assessment/Plan: Assessment: POD #2 Minimally invasive MV repair with P2 quadrangular rsxn and annuloplasty with #32 Physio ring. Oversew orifice BAL. CPB via rt groin. 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 Amenable to repair via mini rt thoracot/peripheral CPB. Extubated in the OR. Optimized hemodynamics early postop with levophed. Development of pericarditic pain and inc pleural edema suggestive of postpericardiotomy syndrome. Started on nonsteroidal anti-inflammatory regimen pending echo. Surgical antithrombotic prophylaxis with Coumadin. Target INR 2-3. Duration 3 mo if rhythm stable. Conservative loading given possible pericarditis. Rhythm - Preop 1st degree AVB. Intermittent 2nd degree AVB early postop, BB avoided. Consider challenge (for AF prophylaxis) while Vwires available. Acute expected blood loss anemia - Stable. No blood products transfused. VTE prophylaxis as per MV. Plan: Baseline postop echo with attn for pericardial effusion. Diuresis if rt heart filling ok. High dose anti-inflammatory regimen w ibuprofen 600mg 4x daily. Keep Vwires for now. Coumadin 2.5 mg today. 04/18/16 08:58 Subjective: Poor sleep (and generally more fatigued) secondary to rt parasternal jabbing pains, better w ibuprofen. Objective: Vital Signs Temp Pulse Resp BP Pulse Ox 36.7 C 82 18 95/61 L 94 04/18/16 07:53 04/18/16 07:53 04/18/16 07:53 04/18/16 07:53 04/18/16 07:53 Laboratory Results 04/18/16 02:45 04/18/16 02:45 04/17/16 04/18/16 04/19/16 05:59 05:59 05:59 Intake Total 2779 1190 Output Total 1120 1387 590 Balance 1659 -197 -590 PT 17.6 SEC (12.0-15.0) H 04/18/16 02:45 INR 1.45 (0.83-1.16) H 04/18/16 02:45 Stable SBP > 90 off levo. HR 70s-80 w single 5 beat run NSVT, occ PACs with some variation in CO interval sugg Mobitz I. No change underlying 1st* AVB. CXR-> widened mediastinum with inc interstitial edema and basilar atelectasis. CT drainage thin, output mildly elevated. I/Os balanced. UOP ok. Labs ok. Slight dip in plt count. Physical Exam - Physical Exam General Appearance: alert, no apparent distress (at rest) Respiratory: lungs clear (grossly), other (te drain to bulb suction, thin mostly serous drainage) Cardiac/Chest: regular rate, rhythm, systolic murmur (soft, most prominent at LSB), friction rub (intermittent), other (rt mini thoracot and rt groin CDI) Abdomen: normal bowel sounds, non-tender, soft Skin: warm/dry Extremities: swelling (1+ generalized) ICD10 Worksheet Patient Problems: Problems Problem Status Diagnosed Acute blood loss anemia Acute Left ventricular diastolic dysfunction, NYHA class 2 Acute S/P mitral valve repair Acute 04/16/16 Severe mitral regurgitation Acute
[2016-04-18] MEDS: IBUPROFEN 600 MG TAB PO SCH ×4 (09:14→21:05)
[2016-04-18] MEDS: MUPIROCIN 2% 22 GM OINT NS SCH (09:15)
[2016-04-18] MEDS ORDERED: FUROSEMIDE 20 MG/2 ML VIAL IVP ONE (13:00)
[2016-04-18] MEDS ORDERED: POTASSIUM CL 10 MEQ TAB PO ONE (13:00)
--- NOTE | 2016-04-18 13:34 | ECHO ---
[id number] + + [address] : : [place] [address] : : [phone] + + Adult Echocardiographic Report + ---+ :Name: RONN THOMPSON KStudy Date: 04/18/2016 08:26 AM BP: 95/61 mmHg : : Hospital Admission Number: [id number] Location: 216: :: 1950 Gender: Male Height: 74 in : :Age: 65 yrs Race: WH Weight: 201 lb : :Reason For Study: baseline post-op assessment : : BSA: 2.2 meters2 : :History: s/p MVRpr P2 resection, #32 Angela ring : + ---+ MMode/2D Measurements & Calculations IVSd: 1.3 cm RVDd: 4.0 cm FS: 26.5 % Ao root diam: LVPWd: 1.0 cm LVIDd: 5.5 cm EDV(Teich): 4.4 cm LVIDs: 4.1 cm 149.9 ml ESV(Teich): 72.9 ml EF(Teich): 51.3 % LVLd ap4: 9.9 cm SV(MOD-sp4): EDV(MOD-sp4): 97.0 ml 196.0 ml LVLs ap4: 9.0 cm ESV(MOD-sp4): 99.0 ml EF(MOD-sp4): 49.5 % Normal Measurement Values: + + :LVIDd (3.5-5.7cm) IVSd (0.6-1.1cm) LVPWd (0.6-1.1cm) Aortic Root (2.0-3.7cm)Left Atrium (1.5-4.0cm): :LV Vol(d) (76-115ml) LV Vol(s) (29-48ml) Ejec Fraction (50-65%)PV Quirino (0.6- 1.2m/s) TV Quirino (0.4-1.0m/s) : :MV E Quirino (0.8-1.0m/s)MV A Quirino (0.3-1.0m/s)LVOT Quirino (0.7-1.2m/s) Asc Ao Quirino ( 0.9-1.8m/s) : + + Doppler Measurements & Calculations MV V2 max: MV P1/2t max quirino: Ao V2 max: LV V1 max: 201.0 cm/sec 198.3 cm/sec 135.0 cm/sec 90.7 cm/sec MV max PG: MV P1/2t: 75.2 msec Ao max PG: LV V1 max P.2 mmHg MVA(P1/2t): 2.9 cm2 7.3 mmHg 3.3 mmHg MV V2 mean: MV dec slope: 108.0 cm/sec MV mean P.7 cm/sec2 6.0 mmHg MV V2 VTI: 45.6 cm PA V2 max: TR max quirino: 52.8 cm/sec 251.0 cm/sec PA max PG: TR max P.2 mmHg 1.1 mmHg RAP systole: 10.0 mmHg RVSP(TR): 35.2 mmHg Left Ventricle The left ventricle is normal in size. Left ventricular systolic function is low normal. Ejection Fraction = 50%. Hypokinesis of the anteroseptum/inferoseptum. Right Ventricle The right ventricle is normal size. The right ventricular systolic function is mildly reduced. Atria The Left Atrial Volume is 49 ml/m2. The left atrium is severely dilated. Right atrial size is normal. A dilated inferior vena cava suggests increased right atrial pressure. Mitral Valve S/P MVRpr, P2 resection, and #32 Angela physio ring. Mean gradient across the MV repair 6mmHg. Query suture hole to the anterior leaflet. Tricuspid Valve The tricuspid valve is normal in structure and function. There is no tricuspid stenosis. There is mild to moderate tricuspid regurgitation. Right ventricular systolic pressure is 35mmHg. There is Doppler evidence for mild pulmonary hypertension. Aortic Valve The aortic valve is trileaflet. There is no aortic stenosis. There is no aortic insufficiency. Pulmonic Valve The pulmonic valve is normal in structure and function. Trace pulmonic valvular regurgitation. Great Vessels Borderline aortic root dilatation. Pericardium/Pleural There is no pericardial effusion. There is a small pleural effusion. Conclusion A two-dimensional transthoracic echocardiogram with M-mode and Doppler was performed. (1) Left ventricular systolic ejection fraction was low normal (50%) - mild hypokinesis of the anteroseptal wall (2) No left ventricular hypertrophy (3) Diastolic function was not assessed (4) Grossly normal right ventricular size with mid reduction in systolic function (5) Severe left atrial dilation with normal right atrial dimension (6) Mitral valve with annular ring. Possible small suture hole to the anterior leaflet. Regugitation now physiologic (7) Trileaflet aortic valve without appreciable insufficiency or sclerosis (8) Mild to moderate tricuspid regurgitation - RVSP was estimated to be 35 mm Hg (9) Poor visualization of the pulmonic valve with physiologic insufficiency by doppler (10) In comparison to prior echocardiogram, there has been dramatic improvement in degree of mitral regurgitation Final Reading Physician: Marta Chacon signed on 04/18/2016 01:33 PM Ordering Physician: Danielle Davis Performed By: Verenice Reis
[2016-04-18] MEDS ORDERED: WARFARIN SODIUM 2.5 MG TAB PO ONE (16:00)
[2016-04-19] MEDS: SENNOSIDES/DOCUSATE SODIUM TAB PO SCH ×3 (00:06→22:26)
[2016-04-19] MEDS: IBUPROFEN 600 MG TAB PO SCH ×2 (06:27→21:12)
[2016-04-19 07:11] LABS: INR 1.43 (0.83-1.16); PROTIME(PATIENT) 17.4 SEC (12.0-15.0)
[2016-04-19 07:25] LABS: POTASSIUM 3.8 mEq/L (3.5-5.2)
[2016-04-19] MEDS: PANTOPRAZOLE SODIUM 40 MG TAB PO SCH (08:46)
[2016-04-19] MEDS: GLUCOSAMINE/CHONDROITIN CAP PO SCH (08:46)
[2016-04-19] MEDS ORDERED: POTASSIUM CL 20 MEQ TAB PO ONE (09:03)
[2016-04-19] MEDS ORDERED: FUROSEMIDE 20 MG/2 ML VIAL IVP ONE (09:03)
--- NOTE | 2016-04-19 09:08 | SOAPPROG ---
SOMAYA Progress Note Assessment/Plan: POD #3: Minimally invasive MVR with #32 Physio ring annuloplasty, oversew BAL, CPB via right femoral artery/vein with primary reapir Severe MR with LA/LV enlargement and low-normal LV function s/p MICS MVR with # 32 ring - f/u ECHO yesterday: no pericardial effusion, no significant MR, preserved LV function - BB started today - CT to remain 1 more day - Ambulation - Coumadin goal 2-3 x 3 months for thromboprophylaxis - Plan for home Thursday/Thursday 1st degree AVB with intermittent 2nd degree Type 1 AVB - Low-dose BB started this AM - Ventricular PW present Class II CHF with normal LV function - Lasix prn - BB started this AM, LUBA unlikely secondary to Low BP Acute blood loss anemia - HCT lower this AM - will monitor Subjective: Feels well today. Pain well-controlled. No SOB. No N/V. Would like to go home JOHANNA. Objective: Vital Signs Temp Pulse Resp BP Pulse Ox 36.6 C 88 16 99/58 L 93 04/19/16 07:36 04/19/16 08:10 04/19/16 07:36 04/19/16 07:36 04/19/16 08:10 Laboratory Results 04/19/16 06:30 04/19/16 06:30 04/18/16 04/19/16 04/20/16 05:59 05:59 05:59 Intake Total 1190 600 Output Total 1387 1100 550 Balance -197 -500 -550 PT 17.4 SEC (12.0-15.0) H 04/19/16 06:30 INR 1.43 (0.83-1.16) H 04/19/16 06:30 Physical Exam - Physical Exam General Appearance: WD/WN, alert, no apparent distress EENT: No scleral icterus (R), No scleral icterus (L) Neck: normal inspection Respiratory: No respiratory distress, No retractions Cardiac/Chest: other (1st degree AV block with intermitted 2nd degree type I AV block) Abdomen: non-tender, soft, No distended Skin: normal color, other (right thoracotomy wound C/D/I / right groin wound C/D /I) Extremities: pedal edema (trace edema B/L) Neuro/Psych: no motor/sensory deficits, alert, normal mood/affect, oriented x 3 ICD10 Worksheet Patient Problems: Problems Problem Status Diagnosed Acute blood loss anemia Acute Left ventricular diastolic dysfunction, NYHA class 2 Acute S/P mitral valve repair Acute 04/16/16 Severe mitral regurgitation Acute
[2016-04-19 09:15] LABS: HEMOGLOBIN 8.9 g/dL (13.7-17.5)
[2016-04-19] MEDS: CARVEDILOL 3.125 MG TAB PO SCH ×2 (09:39→17:34)
[2016-04-19] MEDS ORDERED: WARFARIN SODIUM 5 MG TAB PO ONE (16:00)
[2016-04-20 07:16] LABS: HEMATOCRIT 26.8 % (40.0-51.0); HEMOGLOBIN 9.2 g/dL (13.7-17.5); MEAN CELL HEMOGLOBIN 32.3 pg (27.9-34.1); MEAN CELL HEMOGLOBIN CONCENTR. 34.3 g/dL (32.4-36.7); RED BLOOD CELL COUNT 2.85 10^6/uL (4.40-6.38); RED CELL DISTRIBUTION WIDTH 12.4 % (11.5-15.2)
[2016-04-20 07:30] LABS: ALANINE AMINOTRANSFERASE 51 IU/L (21-72); ALBUMIN 2.3 g/dL (3.5-5.0); ALKALINE PHOSPHATASE 56 IU/L (38-126); ANION GAP 7 mEq/L (8-16); ASPARTATE AMINOTRANSFERASE 36 IU/L (17-59); BILIRUBIN,TOTAL 0.7 mg/dL (0.1-1.4); CALCIUM 8.3 mg/dL (8.5-10.4); CARBON DIOXIDE 29 mEq/l (22-31); CHLORIDE 107 mEq/L (97-110); CREATININE 0.6 mg/dL (0.7-1.3); GLOMERULAR FILTRATION RATE > 60; GLUCOSE 88 mg/dL (70-100); INR 1.32 (0.83-1.16); POTASSIUM 3.5 mEq/L (3.5-5.2); PROTIME(PATIENT) 16.4 SEC (12.0-15.0); SODIUM 143 mEq/L (134-144); TOTAL PROTEIN 4.7 g/dL (6.3-8.2)
[2016-04-20] MEDS: GLUCOSAMINE/CHONDROITIN CAP PO SCH (07:55)
[2016-04-20] MEDS: PANTOPRAZOLE SODIUM 40 MG TAB PO SCH (07:55)
[2016-04-20] MEDS: IBUPROFEN 600 MG TAB PO SCH ×2 (07:56→21:17)
[2016-04-20] MEDS: SENNOSIDES/DOCUSATE SODIUM TAB PO SCH (07:56)
[2016-04-20] MEDS: CARVEDILOL 3.125 MG TAB PO SCH (08:39)
[2016-04-20] MEDS: POTASSIUM CL 20 MEQ TAB PO SCH ×2 (08:45→11:02)
--- NOTE | 2016-04-20 08:53 | DX ---
Portable AP Upright Chest April 20, 2016 at 6:24 a.m. Clinical History: 65-year-old male presenting for follow-up of a right effusion. The patient has had a prior mitral valve replacement. Comparison Study: Chest, dated April 18, 2016 at 3:52 a.m. Findings: The numerous interventional monitoring devices are stable in position. The cardiac silhouet te remains enlarged, and there are small persistent bilateral pleural effusions. There is mild peribr onchial thickening; however, the pulmonary vascular congestive pattern has improved, and there has be en improvement in the inspiratory effort. There is some subcutaneous emphysema again noted on the rig ht side. There is no pneumothorax appreciated, with a right-sided chest tube present. Impression: Postoperative changes with stable interventional devices and improved ventilatory effort, compared to April 18, 2016.
--- NOTE | 2016-04-20 10:30 | SOAPPROG ---
SOAP Progress Note Assessment/Plan: POD #34: Minimally invasive MVR with #32 Physio ring annuloplasty, oversew BAL, CPB via right femoral artery/vein with primary reapir Severe MR with LA/LV enlargement and low-normal LV function s/p MICS MVR with # 32 ring - f/u ECHO: no pericardial effusion, no significant MR, preserved LV function - CT to remain 1 more day - Ambulation - Coumadin goal 2-3 x 3 months for thromboprophylaxis - held due to rhythm issues 1st and 2nd degree AVB - BB stopped due to conduction issues - Likely future PPM, possible placement on this admission - will hold off on Coumadin until final decision is made - Ventricular PW present and connected to external pacer at VVI 50 Class II CHF with normal LV function - Daily Lasix - ACEi if BP improves Acute blood loss anemia - Stable 04/20/16 10:25 Subjective: Feels well. Pain well-controlled. No SOB. Doesn't feel bloated. Not aware of rhythm issues. Objective: Vital Signs Temp Pulse Resp BP Pulse Ox 37.1 C 67 14 97/65 L 90 L 04/20/16 07:38 04/20/16 07:38 04/20/16 07:38 04/20/16 07:38 04/20/16 07:38 Laboratory Results 04/20/16 06:25 04/20/16 06:25 04/19/16 04/20/16 04/21/16 05:59 05:59 05:59 Intake Total 600 1500 Output Total 1100 1906 765 Balance -500 -406 -765 PT 16.4 SEC (12.0-15.0) H 04/20/16 06:25 INR 1.32 (0.83-1.16) H 04/20/16 06:25 Physical Exam - Physical Exam General Appearance: WD/WN, alert, no apparent distress EENT: No scleral icterus (R), No scleral icterus (L) Neck: normal inspection Respiratory: No respiratory distress, No accessory muscle use Cardiac/Chest: regular rate, rhythm, other (1st/2nd degree AV block) Abdomen: non-tender, soft Skin: normal color, warm/dry Extremities: No pedal edema, No swelling Neuro/Psych: no motor/sensory deficits, alert, normal mood/affect, oriented x 3 ICD10 Worksheet Patient Problems: Problems Problem Status Diagnosed Acute blood loss anemia Acute Left ventricular diastolic dysfunction, NYHA class 2 Acute S/P mitral valve repair Acute 04/16/16 Severe mitral regurgitation Acute
[2016-04-20] MEDS: FUROSEMIDE 40 MG TAB PO SCH (11:02)
[2016-04-20 14:25] LABS: POTASSIUM 4.1 mEq/L (3.5-5.2)
[2016-04-20] MEDS ORDERED: WARFARIN SODIUM 5 MG TAB PO ONE (16:30)
[2016-04-20] MEDS ORDERED: AMIODARONE A.FIB-6HR INFSN (ORDER 2/3) IV ONE (17:30)
[2016-04-20] MEDS ORDERED: AMIODARONE A.FIB-LOAD DOSE(ORDER 1/3) IV ONE (17:30)
[2016-04-20] MEDS ORDERED: ALPRAZolam 0.25 MG TAB PO PRN (19:31)
[2016-04-20] MEDS: HYDROCODONE/APAP 5/325 TAB PO PRN (23:20)
[2016-04-20] MEDS ORDERED: AMIODARONE A.FIB-18HR INFSN (ORDER 3/3) IV ONE (23:30)
[2016-04-21] MEDS: SENNOSIDES/DOCUSATE SODIUM TAB PO SCH ×2 (00:11→08:29)
[2016-04-21 05:49] LABS: INR 1.32 (0.83-1.16); PROTIME(PATIENT) 16.4 SEC (12.0-15.0)
--- NOTE | 2016-04-21 08:16 | SOAPPROG ---
YAIMA Progress Note Assessment/Plan: POD #5: Minimally invasive MVR with #32 Physio ring annuloplasty, oversew BAL, CPB via right femoral artery/vein with primary reapir Severe MR with LA/LV enlargement and low-normal LV function s/p MICS MVR with # 32 ring - f/u ECHO: no pericardial effusion, no significant MR, preserved LV function - CT to be removed today - Ambulation - Coumadin goal 2-3 x 3 months for thromboprophylaxis - DVT prophylaxis with SCDs/Lovenox while Coumadin becomes therapeutic 1st/2nd degree AVB/atrial fibrillation/flutter/?VT - Amiodarone started yesterday evening secondary to SVT/?VT with external pacer set to VVI 50 - since amiodarone started no atrial/ventricular arrhythmias or need for back-up pacing - Will reach out to Dr. Arevalo (EP) for evaluation Class II CHF with normal LV function - Daily Lasix - ACEi if BP improves Acute blood loss anemia - Stable Subjective: Feels well. More relaxed than yesterday. No palpitations/SOB. Objective: Vital Signs Temp Pulse Resp BP Pulse Ox 36.6 C 66 18 117/71 94 04/21/16 07:23 04/21/16 07:23 04/21/16 07:23 04/21/16 07:23 04/21/16 07:23 Laboratory Results 04/20/16 06:25 04/21/16 05:25 04/20/16 04/21/16 04/22/16 05:59 05:59 05:59 Intake Total 1500 1759 Output Total 1906 2960 Balance -406 -1201 PT 16.4 SEC (12.0-15.0) H 04/21/16 05:25 INR 1.32 (0.83-1.16) H 04/21/16 05:25 Physical Exam - Physical Exam General Appearance: WD/WN, alert, no apparent distress EENT: No scleral icterus (R), No scleral icterus (L) Neck: normal inspection Respiratory: No respiratory distress Cardiac/Chest: regular rate, rhythm Abdomen: non-tender, soft, No distended Skin: normal color, warm/dry Extremities: No pedal edema, No swelling Neuro/Psych: no motor/sensory deficits, alert, normal mood/affect, oriented x 3 ICD10 Worksheet Patient Problems: Problems Problem Status Diagnosed Acute blood loss anemia Acute Left ventricular diastolic dysfunction, NYHA class 2 Acute S/P mitral valve repair Acute 04/16/16 Severe mitral regurgitation Acute
[2016-04-21] MEDS ORDERED: IBUPROFEN 600 MG TAB PO PRN (08:21)
[2016-04-21] MEDS: FUROSEMIDE 40 MG TAB PO SCH (08:29)
[2016-04-21] MEDS: PANTOPRAZOLE SODIUM 40 MG TAB PO SCH (08:29)
[2016-04-21] MEDS: GLUCOSAMINE/CHONDROITIN CAP PO SCH (08:30)
--- NOTE | 2016-04-21 08:35 | DX ---
Portable Chest 0619 hours History: Follow up right-sided chest tube and effusion. Prior mitral valve replacement. Comparison: Portable chest April 20, 2016. Findings: Right internal jugular central venous catheter tip is in the upper SVC. Right chest tube ti p overlies the right lung apex. There is no visible pneumothorax. Mild basilar atelectasis is present with a small left pleural effusion and equivocal right pleural effusion. Enlargement of the cardiome diastinal silhouette is stable. Artificial mitral valve and epicardial pacing leads are noted. Subcut aneous emphysema over the right chest is stable. Impression: Stable chest with basilar atelectasis and small effusions.
[2016-04-21] MEDS: ENOXAPARIN 40 MG/0.4 ML SYR SC SCH (12:14)
[2016-04-21] MEDS ORDERED: POTASSIUM CL 20 MEQ TAB PO ONE (15:00)
[2016-04-21] MEDS ORDERED: WARFARIN SODIUM 5 MG TAB PO ONE (16:00)
[2016-04-21] MEDS ORDERED: SENNOSIDES/DOCUSATE SODIUM TAB PO PRN (21:00)
[2016-04-22 06:15] LABS: INR 1.41 (0.83-1.16); PROTIME(PATIENT) 17.2 SEC (12.0-15.0)
[2016-04-22] MEDS: ENOXAPARIN 40 MG/0.4 ML SYR SC SCH (08:47)
[2016-04-22] MEDS: GLUCOSAMINE/CHONDROITIN CAP PO SCH (08:49)
[2016-04-22] MEDS: PANTOPRAZOLE SODIUM 40 MG TAB PO SCH (08:49)
--- NOTE | 2016-04-22 09:06 | PDCARCONS ---
Cardiology Consult Reason for Consult: Arrhythmia - electrophysiology consultation Chief Complaint: Patient is asymptomatic Requesting Physician: Dr. 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 He presented with congestive heart failure, was found to have severe mitral regurgitation. He underwent mitral valve repair surgery. Post surgery he had both atrial fibrillation and atrial flutter. Was started on low-dose carvedilol, this needed to be stopped because of sinus pauses up to 4.5 seconds. Subsequently he also had wide complex tachycardia for which amiodarone was started. I have been asked to comment on his arrhythmias by Dr. Dimitri Braun. [facility] in the room. Patient's RN was also present in the room at the time of this discussion. History Information - Allergies/Home Medication List Allergies/Adverse Reactions: mussels Allergy (Verified 04/15/16 16:54) Home Medications: Glucosamine/Chondroitin [Glucosamine/Chondroitin (*)] 1 each PO DAILY 04/15/16 [ Last Taken 04/15/16] Herbals/Supplements -Info Only 1 ea PO DAILY 04/15/16 [Last Taken 04/15/16] - Social History Smoking Status: Never smoked Physical Exam Temp Pulse Resp BP Pulse Ox 36.5 C 71 20 121/71 H 95 04/22/16 07:38 04/22/16 07:38 04/22/16 07:38 04/22/16 07:38 04/22/16 07:38 O2 (L/minute) 1 Constitutional: no apparent distress, appears nourished Cardiovascular: regular rate and rhythym Neurologic: AAOx3 Psychiatric: interacting appropriately, not anxious, thought process linear Lab and Imaging 04/20/16 06:25 04/22/16 05:45 WBC 7.23 10^3/uL (3.80-9.50) 04/20/16 06:25 RBC 2.85 10^6/uL (4.40-6.38) L 04/20/16 06:25 Hgb 9.2 g/dL (13.7-17.5) L 04/20/16 06:25 POC Hgb 9.9 gm/dL (14.5-17.3) L 04/17/16 02:48 Hct 26.8 % (40.0-51.0) L 04/20/16 06:25 POC Hct 29 % (42.8-50.6) L 04/17/16 02:48 MCV 94.0 fL (81.5-99.8) 04/20/16 06:25 MCH 32.3 pg (27.9-34.1) 04/20/16 06:25 MCHC 34.3 g/dL (32.4-36.7) 04/20/16 06:25 RDW 12.4 % (11.5-15.2) 04/20/16 06:25 Plt Count 132 10^3/uL (150-400) L 04/20/16 06:25 MPV 11.1 fL (8.7-11.7) 04/18/16 02:45 Neut % (Auto) 82.1 % (39.3-74.2) H 04/18/16 02:45 Lymph % (Auto) 8.4 % (15.0-45.0) L 04/18/16 02:45 [place] % (Auto) 8.8 % (4.5-13.0) 04/18/16 02:45 Eos % (Auto) 0.2 % (0.6-7.6) L 04/18/16 02:45 Baso % (Auto) 0.2 % (0.3-1.7) L 04/18/16 02:45 Nucleat RBC Rel Count 0.0 % (0.0-0.2) 04/18/16 02:45 Absolute Neuts (auto) 10.07 10^3/uL (1.70-6.50) H 04/18/16 02:45 Absolute Lymphs (auto) 1.03 10^3/uL (1.00-3.00) 04/18/16 02:45 Absolute Monos (auto) 1.08 10^3/uL (0.30-0.80) H 04/18/16 02:45 Absolute Eos (auto) 0.03 10^3/uL (0.03-0.40) 04/18/16 02:45 Absolute Basos (auto) 0.03 10^3/uL (0.02-0.10) 04/18/16 02:45 Absolute Nucleated RBC 0.00 10^3/uL (0-0.01) 04/18/16 02:45 Immature Gran % 0.3 % (0.0-1.1) 04/18/16 02:45 Immature Gran # 0.04 10^3/uL (0.00-0.10) 04/18/16 02:45 PT 17.2 SEC (12.0-15.0) H 04/22/16 05:45 INR 1.41 (0.83-1.16) H 04/22/16 05:45 Puncture Site LEFT RADIAL 04/17/16 03:15 Patient Temperature 37.0 DEGREES 04/17/16 03:15 pCO2 38 mmHg (34-38) 04/17/16 03:15 pO2 95 mmHg (65-75) H 04/17/16 03:15 Total CO2 23 mEq/L (23-27) 04/17/16 03:15 ABG pH 7.38 (7.35-7.45) 04/17/16 03:15 ABG O2 Saturation 98 % (92-95) H 04/17/16 03:15 ABG Base Excess -2.6 mEq/L (-2.5-2.5) L 04/17/16 03:15 Total O2 Concentration 3.0 LITERS 04/17/16 03:15 POC Sodium 144 mEq/L (134-144) 04/17/16 02:48 Sodium 143 mEq/L (134-144) 04/20/16 06:25 POC Potassium 4.8 mEq/L (3.3-5.0) 04/17/16 02:48 Potassium 4.0 mEq/L (3.5-5.2) 04/22/16 05:45 POC Chloride 110 mEq/L (96-108) H 04/17/16 02:48 Chloride 107 mEq/L (97-110) 04/20/16 06:25 Carbon Dioxide 29 mEq/l (22-31) 04/20/16 06:25 Bicarbonate 22 mEq/L (22-26) 04/17/16 03:15 Anion Gap 7 mEq/L (8-16) 04/20/16 06:25 POC BUN 25 mg/dL (7-23) H 04/17/16 02:48 BUN 20 mg/dL (7-23) 04/20/16 06:25 Creatinine 0.6 mg/dL (0.7-1.3) L 04/20/16 06:25 POC Creatinine 0.7 mg/dL (0.8-1.5) L 04/17/16 02:48 Estimated GFR > 60 04/20/16 06:25 Glucose 88 mg/dL (70-100) 04/20/16 06:25 POC Glucose 144 mg/dL (70-100) H 04/17/16 08:29 Calcium 8.3 mg/dL (8.5-10.4) L 04/20/16 06:25 Magnesium 1.8 mg/dL (1.6-2.3) 04/20/16 14:15 Total Bilirubin 0.7 mg/dL (0.1-1.4) 04/20/16 06:25 AST 36 IU/L (17-59) 04/20/16 06:25 ALT 51 IU/L (21-72) 04/20/16 06:25 Alkaline Phosphatase 56 IU/L (38-126) 04/20/16 06:25 Total Protein 4.7 g/dL (6.3-8.2) L 04/20/16 06:25 Albumin 2.3 g/dL (3.5-5.0) L 04/20/16 06:25 Patient ABO/Rh O POSITIVE 04/14/16 11:38 Antibody Screen NEGATIVE 04/14/16 11:38 Telemetry: 1. Underlying sinus rhythm with prolonged CT interval of between 350- 400 milliseconds. 2. Intermittent atrial flutter and atrial fibrillation. 3. Wide complex tachycardia noticed on 04/20/2016is consistent with atrial flutter with aberrant conduction, ventricular rate 150 beats per minute. A/P Assessment: 1. 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 Atrial flutter and atrial fibrillation 3. Wide complex tachycardia consistent with atrial flutter with aberrant conduction to the ventricles. Plan: 65-year-old male with severe mitral regurgitation, severe left atrial dilatation , status post mitral valve surgery. He has the above-noted arrhythmias. I explained normal conduction system, AV leslee conduction disease both leslee and infra Hisian, and atrial flutter/fibrillation pathophysiology with the patient and his at great length. I am concerned that his prolonged CT interval may be infra-Hisian given mitral valve disease and mitral valve surgery. He has had ventricular pauses of up to 4.5 seconds with low-dose beta-hernandez therapy. We discussed the reasoning for giving AV leslee blocking agents and the potential for tachycardia mediated cardiomyopathy if his ventricular rates are not controlled. I have made a strong recommendation for implantation of a permanent pacemaker. We did discuss that if he has ventricular pauses he can have syncope and in absence of adequate ventricular escape rhythm, this could lead to sudden . He understands the risks of not having a pacemaker placed, prefers to go home and be monitored as an outpatient. I have explained to him the risks of this approach as mentioned above. I also discussed his case with Dr. Dimitri Braun. Complex discussion, 45 minutes spent taking care of the patient, more than 50% counseling.
--- NOTE | 2016-04-22 09:47 | SOAPPROG ---
YAIMA Progress Note Assessment/Plan: POD #6: Minimally invasive MVR with #32 Physio ring annuloplasty, oversew BAL, CPB via right femoral artery/vein with primary reapir Severe MR with LA/LV enlargement and low-normal LV function s/p MICS MVR with # 32 ring - f/u ECHO: no pericardial effusion, no significant MR, preserved LV function - Coumadin goal 2-3 x 3 months for thromboprophylaxis - DVT prophylaxis with SCDs/Lovenox until Coumadin becomes therapeutic 1st/2nd degree AVB/atrial fibrillation/flutter/?VT - Dr. Arevalo recommended PPM placement and patient would like a 2nd opinion - No BB/Amio due to 2nd degree block Class II CHF with normal LV function - ACEi if BP improves Acute blood loss anemia - Stable Subjective: Pt feels well. Would like a second decision regarding PPM insertion. Objective: Vital Signs Temp Pulse Resp BP Pulse Ox 36.5 C 71 20 121/71 H 95 04/22/16 07:38 04/22/16 07:38 04/22/16 07:38 04/22/16 07:38 04/22/16 07:38 Laboratory Results 04/20/16 06:25 04/22/16 05:45 04/21/16 04/22/16 04/23/16 05:59 05:59 05:59 Intake Total 1759 2080 Output Total 2960 3125 Balance -1201 -1045 PT 17.2 SEC (12.0-15.0) H 04/22/16 05:45 INR 1.41 (0.83-1.16) H 04/22/16 05:45 Physical Exam - Physical Exam General Appearance: WD/WN, alert, no apparent distress EENT: No scleral icterus (R), No scleral icterus (L) Neck: normal inspection Respiratory: No respiratory distress Cardiac/Chest: irregularly irregular Abdomen: non-tender, soft, No distended Skin: normal color, warm/dry Extremities: No pedal edema Neuro/Psych: no motor/sensory deficits, alert, normal mood/affect, oriented x 3 ICD10 Worksheet Patient Problems: Problems Problem Status Diagnosed Acute blood loss anemia Acute Left ventricular diastolic dysfunction, NYHA class 2 Acute S/P mitral valve repair Acute 04/16/16 Severe mitral regurgitation Acute
[2016-04-22] MEDS: FUROSEMIDE 40 MG TAB PO SCH (11:32)
[2016-04-22] MEDS ORDERED: WARFARIN SODIUM 5 MG TAB PO ONE (16:00)
--- NOTE | 2016-04-22 20:44 | CPEKG ---
Heart Rate: 84 RR Interval: 714 P-R Interval: 292 QRSD Interval: 84 QT Interval: 396 QTC Interval: 469 P [place]: -2 QRS [place]: 10 T Wave [place]: 72 EKG Severity - ABNORMAL ECG - EKG Impression: SINUS RHYTHM EKG Impression: FIRST DEGREE AV BLOCK Electronically Signed By: Shaheed Arevalo 23-Apr-2016 11:10:14
[2016-04-23 08:12] VITALS: BP 92/62; PULSE 118; RESP 18; TEMP 97.8; O2SAT 96
[2016-04-23] MEDS: GLUCOSAMINE/CHONDROITIN CAP PO SCH (08:43)
[2016-04-23] MEDS: PANTOPRAZOLE SODIUM 40 MG TAB PO SCH (08:43)
[2016-04-23] MEDS: ENOXAPARIN 40 MG/0.4 ML SYR SC SCH (08:43)
--- NOTE | 2016-04-23 08:51 | SOAPPROG ---
Addendum entered and electronically signed by Danielle Davis PA 04/23/16 12:16: Examined by Dr Patton. Chronotropic competence demonstrated w treadmill testing and cleared for discharge with Zio monitoring. Vwire clipped at skin. Instructions re diet, meds, activity, followup and wound care reviewed in presence of . Original Note: SOAP Progress Note Assessment/Plan: Assessment: POD #7 Minimally invasive MV repair with P2 quadrangular rsxn and annuloplasty with #32 Physio ring. Oversew orifice BAL. CPB via rt groin. 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 Amenable to repair via mini rt thoracot/peripheral CPB. Extubated in the OR. Optimized hemodynamics early postop with levophed. 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 Significant volume overload diuresed with stable renal fx. Surgical antithrombotic prophylaxis with Coumadin. Target INR 2-3. Duration 3 mo if rhythm stable. Postop PAF/Fl - Preop 1st degree AVB. Intermittent 2nd degree AVB early postop, with pauses on BB challenge. Eventual PAF/Fl w wide complex tachycardia deemed aberrant flutter by EP cards. No further arrhythmia after amio loaded but therapy d/cd to assess conduction system. Believed to have significant AV leslee disease and PPM recommended. Pt in favor of watchful waiting and 2nd opinion. Acute expected blood loss anemia - Stable. No blood products transfused. VTE prophylaxis as per MV. Plan: Await PPM 2nd opinion by Dr Patton. Keep Vwires for now. Coumadin 7.5 mg today. Dispo- Home once cleared by cards. 04/23/16 08:48 Subjective: Feels fine. Eager for home. Hopeful that rhythm will recover but willing to undergo PPM placement if Dr Patton affirms EP position. Minimal incisional discomfort. Objective: Vital Signs Temp Pulse Resp BP Pulse Ox 36.6 C 118 H 18 92/62 L 96 04/23/16 08:10 04/23/16 08:10 04/23/16 08:10 04/23/16 08:10 04/23/16 08:10 Laboratory Results 04/20/16 06:25 04/22/16 05:45 04/22/16 04/23/16 04/24/16 05:59 05:59 05:59 Intake Total 2080 250 Output Total 0715 1707 Balance -1045 -2225 PT 17.2 SEC (12.0-15.0) H 04/22/16 05:45 INR 1.41 (0.83-1.16) H 04/22/16 05:45 Holding SR with 1st degree AVB (DC 292). Off O2. Autodiuresing well. Within 2kg of admit wt. Labs ok. Physical Exam - Physical Exam General Appearance: alert, no apparent distress Respiratory: lungs clear, other (rt thoracot CDI) Cardiac/Chest: regular rate, rhythm, other (Vwires intact) Abdomen: non-tender, soft Skin: warm/dry Extremities: swelling (trace) ICD10 Worksheet Patient Problems: Problems Problem Status Diagnosed Acute blood loss anemia Acute Left ventricular diastolic dysfunction, NYHA class 2 Acute S/P mitral valve repair Acute 04/16/16 Severe mitral regurgitation Acute
--- NOTE | 2016-04-23 09:26 | CPEKG ---
Heart Rate: 80 RR Interval: 750 P-R Interval: 288 QRSD Interval: 84 QT Interval: 396 QTC Interval: 457 P [place]: 43 QRS [place]: -3 T Wave [place]: 72 EKG Severity - ABNORMAL ECG - EKG Impression: SINUS RHYTHM EKG Impression: FIRST DEGREE AV BLOCK Electronically Signed By: Shaheed Arevalo 23-Apr-2016 11:09:33
[2016-04-23 09:32] LABS: INR 1.46 (0.83-1.16); PROTIME(PATIENT) 17.7 SEC (12.0-15.0)
[2016-04-23 10:01] LABS: POTASSIUM 4.2 mEq/L (3.5-5.2)
[2016-04-23] MEDS ORDERED: WARFARIN SODIUM 7.5 MG TAB PO ONE (16:00)
--- NOTE | 2016-04-23 17:53 | PDDCSUM ---
Discharge Summary Discharge Summary: Date of Admission: 04/16/16 Date of Discharge: 04/23/16 DISPOSITION: Home, self-care PRINCIPAL DISCHARGE DIAGNOSIS: Symptomatic severe mitral valve regurgitation PRINCIPAL DISCHARGE DIAGNOSES: 1. Status post complex mitral valve repair via a minimally invasive approach. 2. Status post prophylactic oversew of the orifice of the left atrial appendage. 3. Acute expected blood loss anemia. 4. Postpericardiotomy syndrome. 5. Postoperative paroxysmal atrial fibrillation and flutter. 6. Postoperative wide complex tachycardia consistent with atrial flutter with aberrant conduction. 7. Postoperative AV leslee dysfunction with first and second degree block. 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 Associated with severe LA dilatation, mild LV dilatation, and mild LVDD. No CAD, LVSD, arrhythmia, or overt CHF. Admitted for elective mitral repair via a minimally invasive approach. PAST MEDICAL HISTORY: None. *10 ironman triathlons completed; habitual exercise > 10hrs weekly. MEDICATIONS ON ADMISSION: Aspirin 325 mg daily, glucosamine/chondroitin supplement daily, herbal supplement daily ALLERGIES: NKDA CONSULTANTS: Pulmonology/critical care (Bharath), EP cardiology ([place]), Interventional cardiology ([place]) PROCEDURES/IMAGIN/1 (pAarna): Minimally invasive mitral valve repair with quadrangular resection of P2 and annuloplasty with a 32 mm Angela Physio ring. Prophylactic oversew of the orifice of the left atrial appendage. Access via mini right thoracotomy. Cardiopulmonary bypass via rt common femoral artery and vein. Primary repair of femoral vessels after decannulation. 04/18 (Cole): Transthoracic echocardiogram 04/23 (Abdi): Treadmill stress test HOSPITAL COURSE: Admitted on the day of surgery and taken to the OR where 1st degree AVB incidentally noted on telemetry and borderline LV systolic dysfunction noted by DEYANIRA. Access to the left atrium achieved via rt inframammary thoracotomy. Cardiopulmonary bypass instituted via rt femoral vessels. Mitral valve seen to have myxomatous changes with multiple ruptured chords to P2. 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 Complex repair undertaken without any apparent complications. Normal coaptation restored and no MR, KITTY, or PVL seen on postop echo. Easily from CPB with preserved LV systolic fx. Extubated in the OR and transferred to the ICU in stable condition. Hemodynamics optimized on low dose levophed x 24 hrs. No blood or blood products transfused. Postop course notable for postpericardiotomy syndrome, AV leslee dysfunction and atrial arrhythmias. Pleuropericarditic pain and edema promptly responsive to NSAIDs and diuresis. Afib prophylaxis with beta blockers negated by persistent 1st degree AVB with some intermittent Mobitz I. Coreg nonetheless trialed on POD#3 for onset of atrial fib/flutter but later discontinued after sinus pauses up to 4.5 sec. Rechallenged with AV leslee hernandez (amiodarone) after burst of wide complex tachycardia. EP cardiology consulted and amiodarone stopped after rhythm diagnosed as aberrant atrial flutter. Believed to have significant underlying AV leslee disease and permanent pacemaker recommended, if only to safely treat episodic atrial tachycardias. Patient averse to pacemaker, favoring watchful monitoring and 2nd opinion. Interventional cardiology solicited. Treadmill stress testing for high degree block or dysrhythmias negative and cleared for discharge home under Zio patch surveillance. Valvular antithrombotic prophylaxis with Coumadin intensified and enrolled in anticoagulation clinic. DISCHARGE CLINICAL INFORMATION: Rt thoracotomy and groin incision CDI, sutured, + Dermabond. HR 70s-80s, rare PAFlutter 110s. SBP upper 90s. SpO2 95% RA. Wt 2.4 kg above admission at 81.9 kilos. EKG SR 84, 1st degree AVB (OK 288) WBC 7.2, Hgb 9.2, HCT 26.8, Plt 132, Cr 0.6, K 4.2 Coumadin flowsheet: Target INR 2-3. Duration TBD. Date INR mg 2/2 1.44 5 2/3 1.45 2.5 2/4 1.43 5 2/5 1.32 5 2/6 1.32 5 2/7 1.41 5 2/8 1.46 7.5 DISCHARGE MEDICATIONS: As on admission with the following adjustment: Hold Aspirin for INR > 1.9. NEW Prescriptions: Coumadin 7.5 mg daily or as directed by INR. OTC: Tylenol 325-500 mg q4h prn mild incisional discomfort. Tylenol PM prn insomnia. Max daily dose of Tylenol 3,000mg; Ibuprofen 400-600 mg TID w food prn moderate incisional discomfort. FOLLOW UP APPOINTMENTS: 1. Cardiology: with Dr Patton at [facility] today after hospital discharge for Zio patch placement and on 05/20 at 10am. 2. CV surgery: with Dr Braun at [facility] on 04/29 at 1:45pm. FOLLOW UP TESTIN. INR at [facility] anticoagulation clinic on 04/25. 2. CXR prior to surgical appointment.
== END 2016-04-23 14:01 | disposition home or self-care (01) | DRG 219 ==
LOC: EEVIPCON 05:47 → F2N 05:47 → F2W 04-17 16:34
PROVIDERS: ADMIT Thoracic Surgery (Cardiothoracic Vascular Surgery); ATTEND Thoracic Surgery (Cardiothoracic Vascular Surgery)
PROC: 02L70ZK Occlusion of Left Atrial Appendage, Open Approach (ICD-10-PCS; principal; 2016-04-16 07:15)
PROC: 5A1221Z Performance of Cardiac Output, Continuous (ICD-10-PCS; principal; 2016-04-16 07:15)
PROC: 02UG0JZ Supplement Mitral Valve with Synthetic Substitute, Open Approach (ICD-10-PCS; principal; 2016-04-16 07:15)
DX: I34.0 Nonrheumatic mitral (valve) insufficiency (principal); I51.1 Rupture of chordae tendineae, not elsewhere classified; D62 Acute posthemorrhagic anemia; I97.0 Postcardiotomy syndrome; I48.91 Unspecified atrial fibrillation; I48.92 Unspecified atrial flutter; I44.1 Atrioventricular block, second degree; R73.9 Hyperglycemia, unspecified
CPT/HCPCS: 82947-QW; 92610-GN; 97116-GP; 97161-GP; 97165-GO; 97530-GO; 97530-GP; 97535-GO; G8978-GP-CI; G8979-GP-CH; G8980-GP-CH; G8987-GO-CI; G8988-GO-CH; G8989-GO-CH; G8996-GN-CH; G8997-GN-CH; G8998-GN-CH; J0153; J0282; J0690; J1265; J1644; J1650; J1815; J1885; J2001; J2150; J2250; J2260; J2370; J2704; J2720; J2930; J3010; J7060; P9041

== ENCOUNTER → 2016-04-29 | Outpatient (CLI) | payer OTHER ==
--- NOTE | 2016-04-29 10:41 | DX ---
Chest, PA and Lateral, 3 views History: Follow-up pleural effusion, cellulitis, follow-up elevated right hemidiaphragm, postoperati ve mitral valve replacement, atrial fibrillation with ablation Comparison: April 21, 2016 AP, April 07, 2016 PA and lateral Findings: A right chest tube and a central venous catheter have been removed. There is no pneumothor ax. A small right pleural effusion remains. New mild cardiomegaly and elevation of the right hemidia phragm remains, compared to April 07, 2016. The lungs are normally inflated. A mitral valve repla cement ring, epicardial pacer leads and CABG clips remain overlying the heart. A new loop recorder o verlies the left chest wall. Impression: 1. Persistent cardiomegaly without failure. 2. Small right pleural effusion.
== END ==
LOC: FIMAGING 09:54
PROVIDERS: ATTEND Physician Assistant Surgical
DX: J90 Pleural effusion, not elsewhere classified (principal); J98.6 Disorders of diaphragm; I51.7 Cardiomegaly; Z95.2 Presence of prosthetic heart valve

== ENCOUNTER → 2016-05-06 | Outpatient (CLI) | payer OTHER | LOC: BHFA 10:00 | PROVIDERS: ATTEND Internal Medicine Cardiovascular Disease | DX: I34.9 Nonrheumatic mitral valve disorder, unspecified (principal) ==

== ENCOUNTER → 2016-08-01 | Outpatient (CLI) | payer OTHER | LOC: FIMAGING 10:47 | PROVIDERS: ATTEND Internal Medicine | DX: R07.9 Chest pain, unspecified (principal) ==

== ENCOUNTER → 2016-08-01 | Outpatient (CLI) | payer OTHER ==
[~2016-08-01] MED LIST: IOPAMIDOL (ISOVUE 370) 100 ML BTL IV ONE
== END ==
LOC: FIMAGING 13:19
PROVIDERS: ATTEND Internal Medicine
DX: R79.89 Other specified abnormal findings of blood chemistry (principal); J90 Pleural effusion, not elsewhere classified; I51.7 Cardiomegaly; I31.3 Pericardial effusion (noninflammatory); R91.1 Solitary pulmonary nodule
CPT/HCPCS: 71275; Q9967

== ENCOUNTER → 2016-08-05 | Outpatient (CLI) | payer OTHER | LOC: BHFA 11:30 | PROVIDERS: ATTEND Internal Medicine | DX: R07.9 Chest pain, unspecified (principal); I34.9 Nonrheumatic mitral valve disorder, unspecified ==